=== PATIENT | male | born 1955 | race Caucasian/White ===

== ENCOUNTER 2016-07-12 04:53 | Inpatient (IN) | payer OTHER ==
[2016-07-12 05:49] LABS: FLU INTERNAL QC INTERNAL QC VALID; RAPID FLU A NEGATIVE (NEGATIVE); RAPID FLU B NEGATIVE (NEGATIVE)
[2016-07-12] MEDS ORDERED: ZOSYN 3.375 GM 3.375 GM in SODIUM CHLORIDE 100 ML IV STA (06:08)
[2016-07-12] MEDS ORDERED: SODIUM CHLORIDE 1,000 ML IV STA (06:08)
[2016-07-12] MEDS ORDERED: XOPENEX 1.25 MG NEB STA (06:32)
--- NOTE | 2016-07-12 06:35 | ED.PDOC ---
General Stated Complaint: im coughing and im sob and i have a sore throat Time Seen by Physician: 04:55 Mode of Arrival: Walk-In Information Source: Patient Exam Limitations: No limitations Nursing and Triage Documentation Reviewed and Agree: Yes <XIAO HARTMANN - Last Filed: 07/12/16 06:58> Stated Complaint: 2 days Sore throat, states sputum red colored productive cough , more short of air than normal, fever and chills. Hx pneumonia 6 wks ago. 101.1 79 22 91% 137/74 5/10. oxycontin <YISEL ECHEVARRIA JR - Last Filed: 07/12/16 18:03> ED Provider: Dr. YISEL ECHEVARRIA JR Chief Complaint: Cough Primary Care Provider: MANUELA WATSON Respiratory Complaint Exam - Respiratory Complaint/Exam Onset/Duration: 2 days Symptoms Are: Still present Timing: Intermittent Initial Severity: Mild Current Severity: Moderate Location: Throat, Chest Character: Reports: Productive cough Aggravating: Reports: URI Alleviating: Reports: None Associated Signs and Symptoms: Reports: Dyspnea, Fever, Chills, Hemoptysis, Sore throat. Denies: Rapid breathing, Chest pain, Pleuritic chest pain, Wheezing, Dizziness, Calf pain, Calf swelling, Edema, URI, Nasal congestion, Hoarseness, Sinus discomfort, Vomiting, Weight loss, Decreased oral intake, Increased thirst, Increased appetite, Increased urination Related History: Reports: Similar episode History of Healthcare-Acquired Pneumonia: No Cardiac Risk Factors: Reports: Prior [place], CAD, Hypertension Home Oxygen Use: No Recent Stress Test: No Recent Echo/LV Function: No Current Antibiotic Use: No Current Asthma Medication Use: No Respiratory Distress: None Inadequate Respiratory Effort: No Dysphagia Present: No Stridor Present: No JVD Present: No Accessory Muscle Use: No Retractions: Not Present Diminished Breath Sounds: No Sinus Tenderness: None Grunting Respirations: No Kussmaul Respirations: No Differential Diagnoses: Pneumonia, URI, Other Non-Traumatic Chest Pain Syncope: EKG Performed <XIAO HARTMANN - Last Filed: 07/12/16 06:58> Review of Systems - Review Of Systems Constitutional: Reports: Chills, Fever, Weakness Eyes: Reports: No symptoms Ears, Nose, Mouth, Throat: Reports: Throat pain Respiratory: Reports: Cough Cardiac: Reports: No symptoms GI: Reports: No symptoms : Reports: No symptoms Musculoskeletal: Reports: No symptoms Skin: Reports: No symptoms Neurological: Reports: No symptoms Endocrine: Reports: No symptoms Hematologic/Lymphatic: Reports: No symptoms All Other Systems: Reviewed and Negative <XIAO HARTMANN - Last Filed: 07/12/16 06:58> Past Medical History - Past Medical History Previously Healthy: No Endocrine: Reports: None Cardiovascular: Reports: CHF, Other (enlarged heart) Respiratory: Reports: COPD Hematological: Reports: None Gastrointestinal: Reports: Other Genitourinary: Reports: None 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 ABDOMINAL SURGERY - Surgical History General Surgical History: Reports: Orthopedic ( RIGHT KNEE X3. LEFT SHOULDER X3. ), Other (ESOPHAGUS/STOMACH.) - Family History Family History: Reports: Other (sister of MS at 51 yo) - Social History Smoking Status: Current every day smoker Hx Substance Use: Yes (5 yrs ago - alcohol) Alcohol Screening: None Lives: With family - Immunizations Tetanus Shot up to Date: Yes <XIAO HARTMANN - Last Filed: 07/12/16 06:58> - Past Medical History Endocrine: Reports: Dyslipidemia Cardiovascular: Reports: CAD, [place], Hypertension, Other Neuro/Psych: Reports: CVA, Anxiety, Depression Musculoskeletal: Reports: Back Pain (chronic back pain) Cancer: Reports: Skin (skin cancer), Other (3/4 left kidney removed 05/2016 due to CA-renal cancer) - Surgical History General Surgical History: Reports: Gastric Bypass (rima fundoplication 15 yrs ago) <YISEL ECHEVARRIA JR - Last Filed: 07/12/16 18:03> Physical Exam - Physical Exam Appearance: Ill-appearing Ill-appearing: Mild Eyes: AUREA, EOMI, Conjunctiva clear ENT: Ears normal, Nose normal, Oropharynx normal Neck: Supple Respiratory: Airway patent, Breath sounds clear, Breath sounds equal, Respirations nonlabored Cardiovascular: RRR, Pulses normal, No rub, No murmur GI/: Soft, Nontender, No masses, Bowel sounds normal, No Organomegaly Musculoskeletal: Normal strength, ROM intact, No edema, No calf tenderness Skin: Warm, Dry, Normal color Neurological: Sensation intact, Motor intact, Reflexes intact, Cranial nerves intact, Alert, Oriented Psychiatric: Affect appropriate, Mood appropriate <IVAN-DENNISXIAO - Last Filed: 07/12/16 06:58> - Physical Exam Appearance: Ill-appearing Respiratory: Airway patent, Breath sounds clear Musculoskeletal: No calf tenderness <YISEL ECHEVARRIA - Last Filed: 07/12/16 18:03> Physician Notification - Case Discussed Physician Notified: dr echevarria Time of Notification: 07:00 <MARY KATEXIAO - Last Filed: 07/12/16 06:58> Critical Care Note - Critical Care Note Total Time (mins): 30 <YISEL ECHEVARRIA - Last Filed: 07/12/16 18:03> Course - Course Hematology/Chemistry: 07/12/16 06:45 <MARTADENNISXIAO - Last Filed: 07/12/16 06:58> - Course Hematology/Chemistry: 07/12/16 06:45 07/12/16 06:45 <YISEL ECHEVARRIA - Last Filed: 07/12/16 18:03> - Course Orders, Labs, Meds: Lab Review 07/12/16 07/12/16 07/12/16 05:30 06:06 06:45 WBC 11.34 H RBC 4.86 Hgb 13.9 L Hct 41.4 L MCV 85.2 MCH 28.6 MCHC 33.6 RDW Coeff of Martin 13.9 Plt Count 231 Immature Gran % (Auto) 0.3 Neut % (Auto) 79.5 Lymph % (Auto) 10.2 [place] % (Auto) 7.5 Eos % (Auto) 1.9 Baso % (Auto) 0.6 Immature Gran # (Auto) 0.0 Neut # 9.0 H Lymph # 1.2 [place] # 0.9 Eos # 0.2 Baso # 0.1 D-Dimer (Manual) 1551.30 Puncture Site R radial O2 Saturation 88.0 L ABG pH 7.343 L ABG pCO2 48.3 H ABG pO2 58.0 L* ABG HCO3 26.2 H ABG Total CO2 28 ABG Base Excess 1 Walker Test + FiO2 % 21.0 Sodium 135 L Potassium 4.2 Chloride 99 Carbon Dioxide 28 Anion Gap 12.2 BUN 8 Creatinine 0.89 Estimated GFR (MDRD) 87.00 BUN/Creatinine Ratio 8.98 Glucose 125 H Lactic Acid 8.4 Calcium 9.1 Total Bilirubin 0.59 AST 11 L ALT 7 L Alkaline Phosphatase 69 Total Protein 7.1 Albumin 3.6 Globulin 3.5 Albumin/Globulin Ratio 1.03 Procalcitonin 0.16 Influenza A (Rapid) Negative Influenza B (Rapid) Negative Orders Category Date Time Status ADMIT PATIENT INPATIENT .TO [facility] [place] (MONITORED BED) ADMISSION 07/12/16 08: 05 Active ABG DRAW REQUEST Stat CARDIO 07/12/16 06:06 Completed EKG-(ED ONLY) Stat CARDIO 07/12/16 06:32 Completed EKG-(IP & OP ONLY) DAILY CARDIO 07/13/16 06:00 Ordered EKG-(IP & OP ONLY) DAILY CARDIO 07/14/16 06:00 Ordered EKG-(IP & OP ONLY) DAILY CARDIO 07/15/16 06:00 Ordered NEBULIZER TREATMENT Routine CARDIO 07/12/16 08:19 Active NEBULIZER TREATMENT Stat CARDIO 07/12/16 06:32 Completed OXYGEN Routine CARDIO 07/12/16 08:09 Active ACTIVITY .Early Mobilization for VTE Prevention CARE 07/12/16 08:05 Active INTAKE & OUTPUT Q8HR CARE 07/12/16 08:06 Active NPO REMINDER: IMAGING ONCE CARE 07/12/16 07:33 Completed TELEMETRY MONITORING TELE CARE 07/12/16 08:09 Active VITAL SIGNS Q4HR CARE 07/12/16 08:05 Active REGULAR DIET DIETARY 07/12/16 Breakfast Ordered IV [ED IV/MEDIPORT/POWERPORT] .ONCE EMERGENCY 07/12/16 06:07 Active ABG Stat LAB 07/12/16 06:06 Completed BLOOD CULTURE Stat LAB 07/12/16 06:45 Received CBC W/ AUTO DIFF DAILY@0600 LAB 07/13/16 06:00 Ordered CBC W/ AUTO DIFF DAILY@0600 LAB 07/14/16 06:00 Ordered CBC W/ AUTO DIFF DAILY@0600 LAB 07/15/16 06:00 Ordered CBC W/ AUTO DIFF DAILY@0600 LAB 07/16/16 06:00 Ordered CBC W/ AUTO DIFF DAILY@0600 LAB 07/17/16 06:00 Ordered CBC W/ AUTO DIFF DAILY@0600 LAB 07/18/16 06:00 Ordered CBC W/ AUTO DIFF DAILY@0600 LAB 07/19/16 06:00 Ordered CBC W/ AUTO DIFF DAILY@0600 LAB 07/20/16 06:00 Ordered CBC W/ AUTO DIFF DAILY@0600 LAB 07/21/16 06:00 Ordered CBC W/ AUTO DIFF DAILY@0600 LAB 07/22/16 06:00 Ordered CBC W/ AUTO DIFF DAILY@0600 LAB 07/23/16 06:00 Ordered CBC W/ AUTO DIFF DAILY@0600 LAB 07/24/16 06:00 Ordered CBC W/ AUTO DIFF DAILY@0600 LAB 07/25/16 06:00 Ordered CBC W/ AUTO DIFF DAILY@0600 LAB 07/26/16 06:00 Ordered CBC W/ AUTO DIFF DAILY@0600 LAB 07/27/16 06:00 Ordered CBC W/ AUTO DIFF DAILY@0600 LAB 07/28/16 06:00 Ordered CBC W/ AUTO DIFF DAILY@0600 LAB 07/29/16 06:00 Ordered CBC W/ AUTO DIFF DAILY@0600 LAB 07/30/16 06:00 Ordered CBC W/ AUTO DIFF DAILY@0600 LAB 07/31/16 06:00 Ordered CBC W/ AUTO DIFF DAILY@0600 LAB 08/01/16 06:00 Ordered CBC W/ AUTO DIFF Stat LAB 07/12/16 06:45 Completed COMPREHENSIVE METABOLIC PANEL DAILY@0600 LAB 07/13/16 06:00 Ordered COMPREHENSIVE METABOLIC PANEL DAILY@0600 LAB 07/14/16 06:00 Ordered COMPREHENSIVE METABOLIC PANEL DAILY@0600 LAB 07/15/16 06:00 Ordered COMPREHENSIVE METABOLIC PANEL DAILY@0600 LAB 07/16/16 06:00 Ordered COMPREHENSIVE METABOLIC PANEL DAILY@0600 LAB 07/17/16 06:00 Ordered COMPREHENSIVE METABOLIC PANEL DAILY@0600 LAB 07/18/16 06:00 Ordered COMPREHENSIVE METABOLIC PANEL DAILY@0600 LAB 07/19/16 06:00 Ordered COMPREHENSIVE METABOLIC PANEL DAILY@0600 LAB 07/20/16 06:00 Ordered COMPREHENSIVE METABOLIC PANEL DAILY@0600 LAB 07/21/16 06:00 Ordered COMPREHENSIVE METABOLIC PANEL DAILY@0600 LAB 07/22/16 06:00 Ordered COMPREHENSIVE METABOLIC PANEL DAILY@0600 LAB 07/23/16 06:00 Ordered COMPREHENSIVE METABOLIC PANEL DAILY@0600 LAB 07/24/16 06:00 Ordered COMPREHENSIVE METABOLIC PANEL DAILY@0600 LAB 07/25/16 06:00 Ordered COMPREHENSIVE METABOLIC PANEL DAILY@0600 LAB 07/26/16 06:00 Ordered COMPREHENSIVE METABOLIC PANEL DAILY@0600 LAB 07/27/16 06:00 Ordered COMPREHENSIVE METABOLIC PANEL DAILY@0600 LAB 07/28/16 06:00 Ordered COMPREHENSIVE METABOLIC PANEL DAILY@0600 LAB 07/29/16 06:00 Ordered COMPREHENSIVE METABOLIC PANEL DAILY@0600 LAB 07/30/16 06:00 Ordered COMPREHENSIVE METABOLIC PANEL DAILY@0600 LAB 07/31/16 06:00 Ordered COMPREHENSIVE METABOLIC PANEL DAILY@0600 LAB 08/01/16 06:00 Ordered COMPREHENSIVE METABOLIC PANEL Stat LAB 07/12/16 06:45 Completed CREATINE KINASE Q8H LAB 07/12/16 14:20 Completed CREATINE KINASE Q8H LAB 07/12/16 22:15 Ordered D-DIMER Stat LAB 07/12/16 06:45 Completed LACTIC ACID Stat LAB 07/12/16 06:45 Completed MOLECULAR GROUP A STREP Stat LAB 07/12/16 05:30 Results PROCALCITONIN Stat LAB 07/12/16 06:45 Completed RAPID FLU A/B Stat LAB 07/12/16 05:30 Completed STREP SCREEN Stat LAB 07/12/16 05:30 Results TROPONIN I Q8H LAB 07/12/16 14:20 Completed TROPONIN I Q8H LAB 07/12/16 22:15 Ordered URINALYSIS C & S IF INDICATED Stat LAB 07/12/16 06:06 Uncollected 0.9 % Sodium Chloride [Saline Flush] MEDS 07/12/16 06:07 Active 1 syr IVF PRN PRN Acetaminophen [Tylenol] MEDS 07/12/16 08:05 Active 650 mg PO Q4H PRN Albuterol Sulfate 0.083% Neb [Albuterol 0.083% Neb] MEDS 07/12/16 12:00 Active 1 vial NEB RTQ6H Clopidogrel Bisulfate [Plavix] MEDS 07/12/16 09:00 Active 75 mg PO DAILY Docusate Sodium [Colace] MEDS 07/12/16 21:00 Active 100 mg PO BEDTIME Enoxaparin Sodium [Lovenox] MEDS 07/12/16 08:13 Discontinued 100 mg SUBCUT ONCE STA Enoxaparin Sodium [Lovenox] MEDS 07/12/16 09:00 Active 100 mg SUBCUT Q12HR Enoxaparin Sodium [Lovenox] MEDS 07/12/16 09:00 Discontinued 30 mg SUBCUT DAILY Fluticasone/Salmeterol [Advair Hfa 115-21 Mcg Inhaler] MEDS 07/12/16 09:00 Discontinued 2 inh PO BID Levalbuterol HCl [Xopenex 1.25 mg] MEDS 07/12/16 06:32 Discontinued 1 vial NEB ONCE STA Methylprednisolone Sod Succ/Pf [Solu-Medrol 125 mg] MEDS 07/12/16 08:20 Discontinued 125 mg IVP ONCE STA Methylprednisolone Sod Succ/Pf [Solu-Medrol 125 mg] MEDS 07/12/16 08:22 Discontinued 125 mg IVP ONCE STA Methylprednisolone Sod Succ/Pf [Solu-Medrol 125 mg] MEDS 07/12/16 13:00 Active 80 mg IVP Q8HR Montelukast Sodium [Singulair] MEDS 07/12/16 21:00 Active 10 mg PO BEDTIME Oxycodone HCl [Oxycontin] MEDS 07/12/16 09:00 Active 80 mg PO Q12HR Oxycodone-Acetaminophen 10-325 [Percocet 10-325] MEDS 07/12/16 08:15 Active 1 tab PO Q4H PRN Piperacillin Sodium/Tazobactam [Zosyn 3.375 gm] 3.375 MEDS 07/12/16 06:08 Discontinued gm 0.9 % Sodium Chloride [Sodium Chloride] 100 ml IV ONCE Piperacillin Sodium/Tazobactam [Zosyn 4.5 gm] 4.5 gm MEDS 07/12/16 12:00 Discontinued 0.9 % Sodium Chloride [Sodium Chloride] 100 ml IV Q6HR Sodium Chloride 0.9% [Sodium Chloride] 1,000 ml MEDS 07/12/16 06:08 Discontinued IV 100 mls/hr Sodium Chloride 0.9% [Sodium Chloride] 1,000 ml MEDS 07/12/16 08:30 Active IV 75 mls/hr RESUSCITATION STATUS Routine OTHERS 07/12/16 08:[address] CHEST W/O CONTRAST Stat RADS 07/12/16 06:[address] SOFT TISSUE NECK W/O CONTR Stat RADS 07/12/16 06:08 Completed VQ SCAN [PULMONARY VENT/PERFUSION/ NM] Stat RADS 07/12/16 08:32 Completed Medications Generic Name Dose Route Start Last Admin Trade Name Freq PRN Reason Stop Dose Admin Acetaminophen 650 mg 07/12/16 08:05 Tylenol PO Q4H PRN Mild Pain Albuterol Sulfate 1 vial 07/12/16 12:00 07/12/16 11:21 Albuterol 0.083% Neb NEB 1 vial RTQ6H JESICA Administration Alprazolam 1 mg 07/12/16 09:29 Xanax PO Q6HR PRN Agitation Clopidogrel Bisulfate 75 mg 07/12/16 09:00 07/12/16 12:56 Plavix PO 75 mg DAILY JESICA Administration Docusate Sodium 100 mg 07/12/16 21:00 Colace PO BEDTIME JESICA Enoxaparin Sodium 100 mg 07/12/16 09:00 07/12/16 12:55 Lovenox SUBCUT 100 mg Q12HR JESICA Administration Fluticasone Propionate 1 spray 07/12/16 16:47 Flonase BAILEY BID PRN COLD SYMPTOMS Sodium Chloride 1,000 mls @ 75 mls/hr 07/12/16 08:30 07/12/16 11:30 Sodium Chloride IV 75 mls/hr .[id number] JESICA Administration Piperacillin Sod/Tazobactam 100 mls @ 100 mls/hr 07/12/16 12:00 07/12/16 17: 33 Sod 3.375 gm/ Sodium Chloride IV 100 mls/hr Q6HR JESICA Administration Methylprednisolone Sodium Succinate 80 mg 07/12/16 13:00 07/12/16 12:54 Solu-Medrol 125 Mg IVP 80 mg Q8HR JESICA Administration Montelukast Sodium 10 mg 07/12/16 21:00 Singulair PO BEDTIME JESICA Non-Formulary Medication 2 inh 07/12/16 21:00 Fluticasone/Salmeterol [Advair Hfa 115-21 Mcg Inhaler] PO BID JESICA Oxycodone HCl 80 mg 07/12/16 09:00 07/12/16 12:56 Oxycontin PO 80 mg Q12HR JESICA Administration Oxycodone/Acetaminophen 1 tab 07/12/16 08:15 07/12/16 17:48 Percocet 10-325 PO 1 tab Q4H PRN Administration Severe Pain Simvastatin 80 mg 07/12/16 09:00 07/12/16 12:55 Zocor PO 80 mg DAILY JESICA Administration Sodium Chloride 1 syr 07/12/16 06:07 Saline Flush IVF PRN PRN To flush IV Discontinued Medications Generic Name Dose Route Start Last Admin Trade Name Freq PRN Reason Stop Dose Admin Enoxaparin Sodium 30 mg 07/12/16 09:00 Lovenox SUBCUT DAILY JESICA Enoxaparin Sodium 100 mg 07/12/16 08:13 07/12/16 08:34 Lovenox SUBCUT 07/12/16 08:14 100 mg ONCE STA Administration Piperacillin Sod/Tazobactam 100 mls @ 100 mls/hr 07/12/16 06:08 07/12/16 07: 18 Sod 3.375 gm/ Sodium Chloride IV 07/12/16 07:07 100 mls/hr ONCE STA Administration Sodium Chloride 1,000 mls @ 100 mls/hr 07/12/16 06:08 07/12/16 07:18 Sodium Chloride IV 07/12/16 16:07 100 mls/hr .Q10H STA Administration Piperacillin Sod/Tazobactam 100 mls @ 100 mls/hr 07/12/16 12:00 07/12/16 12: 57 Sod 4.5 gm/ Sodium Chloride IV Not Given Q6HR JESICA Levalbuterol HCl 1 vial 07/12/16 06:32 07/12/16 07:03 Xopenex 1.25 Mg NEB 07/12/16 06:33 1 vial ONCE STA Administration Methylprednisolone Sodium Succinate 125 mg 07/12/16 08:20 07/12/16 08:31 Solu-Medrol 125 Mg IVP 07/12/16 08:21 125 mg ONCE STA Administration Methylprednisolone Sodium Succinate 125 mg 07/12/16 08:22 07/12/16 08:25 Solu-Medrol 125 Mg IVP 07/12/16 08:23 Not Given ONCE STA Non-Formulary Medication 2 inh 07/12/16 09:00 07/12/16 12:56 Fluticasone/Salmeterol [Advair Hfa 115-21 Mcg Inhaler] PO Not Given BID JESICA Vital Signs: Temp Pulse Resp BP Pulse Ox 07/12/16 04:54 101.1 F H 79 22 137/74 91 L Departure <XIAO HARTMANN - Last Filed: 07/12/16 06:58> - Departure Time of Disposition: 08:34 Pt referred to PMD for follow-up: No (hospitalise) <YISEL ECHEVARRIA JR - Last Filed: 07/12/16 18:03> - Departure Disposition: ADMITTED INPATIENT Discharge Problem: Acute tonsillitis Condition: Stable Allergies/Adverse Reactions: Allergies No Known Allergies Allergy (Verified 07/12/16 05:11) Home Medications: Ambulatory Orders Mometasone Furoate [Nasonex] 17 gm NS DIRECTED PRN 10/23/13 Montelukast Sodium [Singulair] 10 mg PO BEDTIME 10/23/13 Oxycodone HCl [Oxycontin] 80 mg PO Q12HR 10/23/13 Oxycodone-Acetaminophen 10-325 [Percocet 10-325] 1 tab PO Q4H PRN 10/23/13 Simvastatin [Zocor] 80 mg PO DAILY 10/23/13 Fluticasone/Salmeterol [Advair Hfa 115-21 Mcg Inhaler] 2 inh PO BID 06/01/14 Alprazolam [Xanax] 1 mg PO Q6H PRN 12/06/15 Docusate Sodium [Dulcolax Stool Softener] 100 mg PO BEDTIME 12/06/15 Clopidogrel Bisulfate [Clopidogrel] 75 mg PO DAILY 01/15/16
--- NOTE | 2016-07-12 06:43 | CT ---
EXAM: CT of the chest without contrast. HISTORY: Cough. Fever. FINDINGS: The heart is within normal limits in size. The thoracic aorta is within normal limits in diameter. The mediastinum is normal in appearance. No infiltrate or consolidation. There are degene rative changes in the spine. There is surgical hardware in the left shoulder. The adrenal glands a nd liver are normal in appearance. There are operative changes in the left kidney. Impression: Negative CT of the chest.
[2016-07-12 06:49] LABS: BASOPHILS # (AUTO) 0.1 K/uL (0-0.2); BASOPHILS % (AUTO) 0.6 % (0.0-3.0); EOSINOPHILS # (AUTO) 0.2 K/ul (0.0-0.7); EOSINOPHILS % (AUTO) 1.9 % (0.0-7.0); HEMATOCRIT 41.4 % (42.0-52.0); HEMOGLOBIN 13.9 g/dl (14.0-18.0); IMMATURE GRANULOCYTE % (AUTO) 0.3 % (0.0-5.0); LYMPHOCYTES # (AUTO) 1.2 K/uL (0.60-3.4); LYMPHOCYTES % (AUTO) 10.2 (10.0-50.0); MEAN CORPUSCULAR HEMOGLOBIN 28.6 pg (27.0-31.0); MEAN CORPUSCULAR HGB CONC 33.6 (31.8-35.4); MEAN CORPUSCULAR VOLUME 85.2 fl (80.0-94.0); MONOCYTES # (AUTO) 0.9 K/uL (0.4-2.0); MONOCYTES % (AUTO) 7.5 (0-10); NEUTROPHILS % (AUTO) 79.5; PLATELET COUNT 231 10^3/uL (140-440); RED BLOOD COUNT 4.86 10^6/ul (4.70-6.10); WHITE BLOOD COUNT 11.34 K/ul (4.2-10.2)
[2016-07-12 06:52] LABS: ABG PCO2 48.3 mmHg (35-45); ABG PH 7.343 (7.35-7.45)
--- NOTE | 2016-07-12 06:52 | CT ---
EXAM: CT of the neck without contrast. HISTORY: Sore throat. Fever. PROCEDURE: Contiguous axial CT images of the neck without contrast with coronal and sagittal reform ats. FINDINGS: The parotid glands, submandibular glands and thyroid gland are normal in appearance. The epiglottis and prevertebral soft tissues are normal in appearance. There is mild enlargement of the left lingual tonsil and moderate enlargement of the right lingual tonsil suspicious for tonsillitis. No discrete fluid collection or evidence of abscess. The airway is maintained. There are enlarged r ight cervical lymph nodes measuring up to 1 cm in short axis. There is minimal mucosal thickening in the paranasal sinuses. The mastoid air cells are well-aerated. There are degenerative changes in th e spine. Impression: Mild enlargement of the left lingual tonsil and moderate enlargement of the right lingua l tonsil suspicious for tonsillitis. Recommend correlation with physical exam. Recommend outpatient follow-up with Otolaryngology to exclude a mass. Cervical lymphadenopathy as described which is probably reactive. Minimal paranasal sinusitis.
[2016-07-12 06:53] LABS: ABG BASE EXCESS 1 (-2.0-2.0); ABG HCO3 26.2 (22.0-26.0); ABG TCO2 28 (22.0-28.0)
[2016-07-12 07:08] LABS: ALBUMIN 3.6 g/dL (3.4-5.0); ALBUMIN/GLOBULIN RATIO 1.03; ANION GAP 12.2; BILIRUBIN,TOTAL 0.59 mg/dL (0.00-1.20); BUN/CREATININE RATIO 8.98; CALCIUM 9.1 mg/dL (8.2-10.2); CREATININE 0.89 mg/dL (0.60-1.10); POTASSIUM 4.2 mmol/L (3.5-5.1); TOTAL PROTEIN 7.1 g/dL (5.8-8.1)
[2016-07-12] MEDS ORDERED: TYLENOL PO PRN (08:05)
[2016-07-12] MEDS ORDERED: LOVENOX SUBCUT STA (08:13)
[2016-07-12] MEDS ORDERED: NON-FORMULARY MEDICATION (Alprazolam [Xanax] 1 MG) PO PRN ×22 (08:15)
[2016-07-12] MEDS ORDERED: NON-FORMULARY MEDICATION (Mometasone Furoate [Nasonex] 17 GM) NS PRN ×22 (08:15)
[2016-07-12] MEDS ORDERED: SOLU-MEDROL 125 MG IVP STA ×2 (08:20→08:22)
[2016-07-12] MEDS ORDERED: LOVENOX SUBCUT SCH (09:00)
[2016-07-12] MEDS ORDERED: SALMETEROL PO SCH (09:00)
[2016-07-12] MEDS ORDERED: FLUTICASONE PO SCH (09:00)
[2016-07-12] MEDS ORDERED: SIMVASTATIN 80 MG PO SCH (09:00)
[2016-07-12] MEDS ORDERED: XANAX PO PRN (09:29)
[2016-07-12] MEDS: ALBUTEROL 0.083% NEB NEB SCH ×3 (11:21→23:12)
[2016-07-12] MEDS: SODIUM CHLORIDE 1,000 ML IV SCH (11:30)
--- NOTE | 2016-07-12 11:30 | NM ---
EXAM: Ventilation perfusion lung scan HISTORY: Shortness of breath, elevated D-dimer COMPARISON: No recent chest x-ray TECHNIQUE: Patient was injected 5.4 mCi of technetium 99m labeled MAA intravenously. Patient was gi amna 32.6 mCi of technetium 99m DTPA aerosol via the nebulizer for ventilation imaging. FINDINGS: Perfusion images show cardiomegaly. No segmental or subsegmental perfusion defect is note d. Ventilation images are unremarkable. IMPRESSION: Cardiomegaly. Otherwise normal VQ scan.
[2016-07-12 11:43] VITALS: BMI 31.1
[2016-07-12] MEDS ORDERED: ZOSYN 4.5 GM 4.5 GM in SODIUM CHLORIDE 100 ML IV SCH (12:00)
[2016-07-12] MEDS: SOLU-MEDROL 125 MG IVP SCH ×2 (12:54→20:55)
[2016-07-12] MEDS: ZOCOR PO SCH (12:55)
[2016-07-12] MEDS: LOVENOX SUBCUT SCH ×2 (12:55→20:53)
[2016-07-12] MEDS: OXYCONTIN PO SCH ×2 (12:56→20:53)
[2016-07-12] MEDS: PLAVIX PO SCH (12:56)
[2016-07-12] MEDS: ZOSYN 3.375 GM 3.375 GM in SODIUM CHLORIDE 100 ML IV SCH ×2 (13:11→17:33)
[2016-07-12 14:46] LABS: CREATINE KINASE 32 U/L
[2016-07-12] MEDS ORDERED: FLONASE NAS PRN (16:47)
[2016-07-12] MEDS: PERCOCET 10-325 PO PRN (17:48)
[2016-07-12] MEDS: SINGULAIR PO SCH (20:52)
[2016-07-12] MEDS: COLACE PO SCH (20:52)
[2016-07-12] MEDS: FLUTICASONE PO SCH (20:56)
[2016-07-12] MEDS: SALMETEROL PO SCH (20:56)
[2016-07-12 22:14] LABS: CREATINE KINASE 34 U/L
[2016-07-13] MEDS: SODIUM CHLORIDE 1,000 ML IV SCH ×2 (00:21→18:22)
[2016-07-13] MEDS: ZOSYN 3.375 GM 3.375 GM in SODIUM CHLORIDE 100 ML IV SCH ×5 (00:21→23:07)
[2016-07-13 02:13] LABS: BILIRUBIN,URINE Negative (NEGATIVE); KETONES,URINE Negative (NEGATIVE); LEUKOCYTE ESTERASE ,URINE Negative (NEGATIVE); NITRITE,URINE Negative (NEGATIVE); PROTEIN,URINE Negative (NEGATIVE); URINE, BLOOD Negative (NEGATIVE)
[2016-07-13 02:16] LABS: ADD URINE MICROSCOPIC NO
[2016-07-13] MEDS: ALBUTEROL 0.083% NEB NEB SCH ×4 (05:14→22:17)
[2016-07-13] MEDS: SOLU-MEDROL 125 MG IVP SCH ×3 (05:24→20:01)
[2016-07-13 06:07] LABS: BASOPHILS % (AUTO) 0.1 % (0.0-3.0); HEMATOCRIT 37.6 % (42.0-52.0); HEMOGLOBIN 12.5 g/dl (14.0-18.0); IMMATURE GRANULOCYTE % (AUTO) 0.7 % (0.0-5.0); LYMPHOCYTES # (AUTO) 0.7 K/uL (0.60-3.4); LYMPHOCYTES % (AUTO) 7.4 (10.0-50.0); MEAN CORPUSCULAR HEMOGLOBIN 28.4 pg (27.0-31.0); MEAN CORPUSCULAR HGB CONC 33.2 (31.8-35.4); MEAN CORPUSCULAR VOLUME 85.5 fl (80.0-94.0); MONOCYTES # (AUTO) 0.4 K/uL (0.4-2.0); MONOCYTES % (AUTO) 3.7 (0-10); NEUTROPHILS # (AUTO) 8.9 K/ul (2.0-6.9); NEUTROPHILS % (AUTO) 88.1; PLATELET COUNT 230 10^3/uL (140-440); WHITE BLOOD COUNT 10.04 K/ul (4.2-10.2)
[2016-07-13 06:25] LABS: ALANINE AMINOTRANSFERASE < 6 U/L (12-78); ALBUMIN 3.1 g/dL (3.4-5.0); ALBUMIN/GLOBULIN RATIO 0.91; ALKALINE PHOSPHATASE 58 U/L (56-119); ANION GAP 12.7; ASPARTATE AMINO TRANSFERASE 5 U/L (15-37); BLOOD UREA NITROGEN 11 mg/dL (7-18); BUN/CREATININE RATIO 11.45; CALCIUM 8.4 mg/dL (8.2-10.2); CARBON DIOXIDE 24 mmol/L (23-31); CHLORIDE 100 mmol/L (98-107); CREATININE 0.96 mg/dL (0.60-1.10); GLUCOSE 256 mg/dL (82-115); POTASSIUM 3.7 mmol/L (3.5-5.1); SODIUM 133 mmol/L (136-145); TOTAL PROTEIN 6.5 g/dL (5.8-8.1)
[2016-07-13 06:31] LABS: BILIRUBIN,TOTAL < 0.10 mg/dL (0.00-1.20)
[2016-07-13] MEDS: PERCOCET 10-325 PO PRN ×3 (06:58→18:19)
[2016-07-13] MEDS: ZOCOR PO SCH (08:51)
[2016-07-13] MEDS: OXYCONTIN PO SCH ×2 (08:52→20:02)
[2016-07-13] MEDS: LOVENOX SUBCUT SCH (08:52)
[2016-07-13] MEDS: PLAVIX PO SCH (08:52)
[2016-07-13] MEDS: SALMETEROL PO SCH (10:39)
[2016-07-13] MEDS: FLUTICASONE PO SCH (10:39)
--- NOTE | 2016-07-13 10:55 | PCM.PROG ---
Attending Provider: ATTENDING PROVIDER: Dr. MYNOR NASH DATE OF SERVICE: 07/13/16 SUBJECTIVE: This 61 year old WHITE/ M was hospitalized 07/12/16. The patient is admitted with pharyngitis, severe hypoxemia, elevated D. dimer, rule out pulmonary embolism. Venous scan is negative for clots. CT of the neck showed enlargement of soft tissue of neck. The patient can swallow better today. He states his throat feels a lot better. REVIEW OF SYSTEMS: CONSTITUTIONAL: No fever, no chills. ENDOCRINE: No weight loss or weight gain. HEENT: Throat is red but is much better. CVS: No angina symptoms. No CHF symptoms. No palpitations. No atypical chest pain for CAD. No shortness of breath. No PND, no orthopnea. RESPIRATORY: No cough, no hemoptysis. GI: No melena. No abdominal pain. No nausea, no vomiting. : No hematuria. No polyuria. SKIN: No rash. No wounds. MUSCULOSKELETAL: No pain. COMPUTER APPLICATIONS ENGINEER: No blackout, no dizziness. No headache. No double vision. PSYCHIATRIC: Not anxious; no depression. No suicidal thoughts. No homicidal thoughts. PHYSICAL EXAMINATION: GENERAL: Lying in bed in no distress. VITAL SIGNS: Temperature 97.7 F, Pulse 80, Respiratory Rate 14, BP 110/48, Pulse Ox 93% HEENT: Normocephalic, atraumatic. Mucosa is dry, pallor positive. Throat - redness. NECK: No JVP, no carotid bruit. No lymphadenopathy. CARDIAC: S1, S2, no S3. No murmur, gallop or regurgitation. LUNGS: Decreased entry. Clear to auscultation. ABDOMEN: Soft, non-tender. Bowel sounds active. No rigidity, guarding or CVA tenderness. EXTREMITIES: No clubbing, cyanosis or edema. NEUROLOGIC: Awake, alert and oriented x3. LYMPHATIC: No palpable lymph nodes SKIN: Not dry. Intact. MUSCULOSKELETAL: No joint swelling. LAB REVIEW: 07/13/16 05:30 07/13/16 05:30 07/13/16 05:30: WBC 10.04, RBC 4.40 L, Hgb 12.5 L, Hct 37.6 L, MCV 85.5, MCH 28.4, MCHC 33.2, RDW Coeff of [place] 13.4, Plt Count 230, Immature Gran % (Auto) 0.7, Neut % (Auto) 88.1, Lymph % (Auto) 7.4 L, Yell % (Auto) 3.7, Eos % (Auto) 0.0, Baso % (Auto) 0.1, Immature Gran # (Auto) 0.1, Neut # 8.9 H, Lymph # 0.7, Yell # 0.4, Eos # 0.0, Baso # 0.0, Sodium 133 L, Potassium 3.7, Chloride 100, Carbon Dioxide 24, Anion Gap 12.7, BUN 11, Creatinine 0.96, Estimated GFR (MDRD ) 80.00, BUN/Creatinine Ratio 11.45, Glucose 256 H D, Calcium 8.4, Total Bilirubin < 0.10, AST 5 L, ALT < 6 L, Alkaline Phosphatase 58, Total Protein 6.5 , Albumin 3.1 L, Globulin 3.4, Albumin/Globulin Ratio 0.91 07/13/16 00:40: Urine Color Yellow, Urine Clarity Clear, Urine pH 6.0, Ur Specific [place] 1.010, Urine Protein Negative, Urine Glucose (UA) 2+, Urine Ketones Negative, Urine Blood Negative, Urine Nitrite Negative, Urine Bilirubin Negative, Urine Urobilinogen 0.2, Ur Leukocyte Esterase Negative 07/12/16 21:49: Total Creatine Kinase 34, Troponin I < 0.0100 07/12/16 14:20: Total Creatine Kinase 32, Troponin I < 0.0100 ASSESSMENT: 1. COPD exacerbation secondary to bronchitis 2. Hypoxemia 3. No pulmonary embolism 4. Pharyngitis with swollen soft tissue of the neck 5. Hypertension 6. Dyslipidemia 7. Hyperglycemia, rule out diabetes mellitus 8. Chronic pain PLAN: 1. Continue Zosyn 2. Continue IV fluids 3. Continue breathing treatments 4. Out of bed to chair 5. HB A1c Plan and coordination of the patient's care discussed in the presence of Mortgage Processing Manager and nurse. CONDITION: Stable SCRIBED BY: KYLAH KIDD Production Stage Manager scribed while in presence of service performed by Dr. MYNOR NASH on 07/13/16 ([id number])
--- NOTE | 2016-07-13 14:18 | HP ---
DATE OF SERVICE: 07/12/16 CHIEF COMPLAINT: Cough and shortness of breath. HISTORY OF PRESENT ILLNESS: This is a 57-year-old male, who came to the emergency room complaining of coughing and congestion productive of yellow-green mucus. He started having shortness of breath and sore throat with fever and chills. He had pneumonia 6 weeks ago, was worried and came to the emergency room and was seen by Dr. Perez in the ER initially. White count 11.34, D. dimer 1551. ABG showed pH 7.34 , pc02 48.3, p02 58. Lactic acid and procalcitonin were negative and influenza negative. Rapid strep was done as the patient's tonsils were swollen; this was negative. CT of the cervical spine which showed tonsillar enlargement. CT chest no acute infiltrate. At that time, the patient is admitted to the hospital for COPD exacerbation, bronchitis, acute tonsillitis and hypoxemia for IV antibiotics and breathing treatment. REVIEW OF SYSTEMS: CONSTITUTIONAL: Fever and chills. Weakness and tiredness. HEENT: Normocephalic, atraumatic. Swallowing difficulty with sore throat. ENDOCRINE: No weight gain; no weight loss. CVS: No chest pain. No PND, no orthopnea. No shortness of breath. No PND, no orthopnea. RESPIRATORY: Cough and congestion. No hemoptysis. GI: No nausea, no vomiting. No abdominal pain. No melena. : No hematuria. No polyuria. MUSCULOSKELETAL: No joint swelling. PSYCHIATRIC: Not anxious. No depression. No suicidal thoughts. No homicidal thoughts. SKIN: Intact, no open lesions. PAST MEDICAL HISTORY: CAD status post stent Hypertension Dyslipidemia History of [place] CHF CVA TIA History of pneumonia GERD Osteoarthritis DJD spine Chronic pain syndrome PAST SURGICAL HISTORY: Recent fundoplication Cholecystectomy Hernia repair Tonsillectomy PERSONAL HISTORY: The patient does smoke one pack per day for 42 years; substance use 5 years ago ; alcohol use. FAMILY HISTORY: Significant for [place] and hypertension. MEDICATIONS: (Home) Zocor Oxycontin Percocet Nasonex Singulair Advair Dulcolax Xanax Plavix ALLERGIES: NKDA PHYSICAL EXAMINATION: V/S: BP 107/62, respiratory rate 20, heart rate 58, temperature 97.6, saturation 94 on 2L. HEENT: Atraumatic, normocephalic. Mucosa dry. NECK: Supple. No JVD, no bruit. No lymphadenopathy. No thyromegaly. HEART: S1, S2 normal. No murmur. No cyanosis or clubbing. No ascites. LUNGS: Decreased with some crackles. ABDOMEN: Soft, nontender. Bowel sounds are active. No CVA tenderness. No rigidity or guarding. EXTREMITIES: No cyanosis, clubbing or pedal edema. MUSCULOSKELETAL: Normal joints, no swelling. NEUROLOGIC: The patient is awake and alert. SKIN: Intact; no open lesions. LYMPHATIC: No lymph nodes palpable. LABS: White count 11.34, hemoglobin 13.9, hematocrit 41.4, platelet count 231. Sodium 135, potassium 4.2, chloride 99, bicarb 28, BUN 8, creatinine 0.89, glucose 125 , AST 11, ALT 7, procalcitonin 0.16. Influenza negative. ABG showed pH 7.343, pc02 48.3, p02 58.0, D.dimer 51.30. ASSESSMENT: 1. COPD EXACERBATION SECONDARY TO BRONCHITIS AND UPPER RESPIRATORY INFECTION 2. HYPOXEMIA RULE OUT PULMONARY EMBOLISM 3. HYPERTENSION 4. DYSLIPIDEMIA 5. CAD STATUS POST STENT 6. HYPERTENSION 7. CHRONIC PAIN SYNDROME PLAN: 1. Admit the patient to the regular floor 2. CBC, CMP today and daily 3. Cardiac enzymes and troponin 4. IV fluids 5. Blood cultures 6. Lovenox 100 mg q.12 7. Solu-Medrol 80 q.8 8. Zosyn q.6hr 9. Duonebs 10. Will follow with the patient in daily rounds TIME SPENT: More than 55 minutes today AYESHA
[2016-07-13] MEDS: SINGULAIR PO SCH (20:02)
[2016-07-13] MEDS: ADVAIR 250-50 DISKUS IH SCH (20:02)
[2016-07-13] MEDS: COLACE PO SCH (20:02)
[2016-07-14] MEDS: PERCOCET 10-325 PO PRN ×2 (00:05→04:40)
[2016-07-14] MEDS: ALBUTEROL 0.083% NEB NEB SCH ×2 (05:07→11:13)
[2016-07-14] MEDS: SOLU-MEDROL 125 MG IVP SCH (05:30)
[2016-07-14] MEDS: ZOSYN 3.375 GM 3.375 GM in SODIUM CHLORIDE 100 ML IV SCH (05:30)
[2016-07-14 06:11] LABS: BASOPHILS % (AUTO) 0.1 % (0.0-3.0); HEMATOCRIT 36.1 % (42.0-52.0); HEMOGLOBIN 12.1 g/dl (14.0-18.0); IMMATURE GRANULOCYTE % (AUTO) 0.8 % (0.0-5.0); LYMPHOCYTES # (AUTO) 0.9 K/uL (0.60-3.4); LYMPHOCYTES % (AUTO) 7.3 (10.0-50.0); MEAN CORPUSCULAR HEMOGLOBIN 28.5 pg (27.0-31.0); MEAN CORPUSCULAR HGB CONC 33.5 (31.8-35.4); MEAN CORPUSCULAR VOLUME 85.1 fl (80.0-94.0); MONOCYTES # (AUTO) 0.5 K/uL (0.4-2.0); MONOCYTES % (AUTO) 3.8 (0-10); NEUTROPHILS # (AUTO) 10.5 K/ul (2.0-6.9); PLATELET COUNT 242 10^3/uL (140-440); RED BLOOD COUNT 4.24 10^6/ul (4.70-6.10); WHITE BLOOD COUNT 11.96 K/ul (4.2-10.2)
[2016-07-14 06:28] LABS: ANION GAP 12.1; BLOOD UREA NITROGEN 8 mg/dL (7-18); BUN/CREATININE RATIO 10.38; CARBON DIOXIDE 25 mmol/L (23-31); CHLORIDE 105 mmol/L (98-107); CREATININE 0.77 mg/dL (0.60-1.10); POTASSIUM 4.1 mmol/L (3.5-5.1); SODIUM 138 mmol/L (136-145)
[2016-07-14 06:29] LABS: ALANINE AMINOTRANSFERASE < 6 U/L (12-78); ALBUMIN/GLOBULIN RATIO 0.79; ALKALINE PHOSPHATASE 49 U/L (56-119); ASPARTATE AMINO TRANSFERASE 7 U/L (15-37); CALCIUM 8.3 mg/dL (8.2-10.2); GLUCOSE 194 mg/dL (82-115); TOTAL PROTEIN 6.8 g/dL (5.8-8.1)
[2016-07-14] MEDS: ADVAIR 250-50 DISKUS IH SCH (08:35)
[2016-07-14] MEDS: PLAVIX PO SCH (08:35)
[2016-07-14] MEDS: OXYCONTIN PO SCH (08:35)
[2016-07-14] MEDS: ZOCOR PO SCH (08:35)
[2016-07-14] MEDS ORDERED: LOVENOX SUBCUT SCH (09:00)
--- NOTE | 2016-07-14 09:54 | PCM.PROG ---
Attending Provider: ATTENDING PROVIDER: Dr. MYNOR NASH DATE OF SERVICE: 07/14/16 SUBJECTIVE: This 61 year old WHITE/ M was hospitalized 07/12/16. The patient states he feels better, throat is better. He doesn't have any problem swallowing. Blood sugar is elevated most likely from steroids, awaiting A1C results. REVIEW OF SYSTEMS: CONSTITUTIONAL: No fever, no chills. ENDOCRINE: No weight loss or weight gain. HEENT: No sinus drainage, no sore throat. CVS: No angina symptoms. No CHF symptoms. No palpitations. No atypical chest pain for CAD. No shortness of breath. RESPIRATORY: No cough, no hemoptysis. GI: No melena. No abdominal pain. No nausea, no vomiting. : No hematuria. No polyuria. SKIN: No rash. No wounds. MUSCULOSKELETAL: No pain. FOOD AND BEVERAGE ASSISTANT: No blackout, no dizziness. No headache. No double vision. PSYCHIATRIC: Not anxious; no depression. No suicidal thoughts. No homicidal thoughts. PHYSICAL EXAMINATION: GENERAL: Lying in bed in no distress. VITAL SIGNS: Temperature 96.6 F, Pulse 62, Respiratory Rate 18, BP 113/56, Pulse Ox 95% HEENT: Normocephalic, atraumatic. Mucosa is dry, pallor positive. NECK: No JVP, no carotid bruit. No lymphadenopathy. CARDIAC: S1, S2, no S3. No murmur, gallop or regurgitation. LUNGS: Clear to auscultation. ABDOMEN: Soft, non-tender. Bowel sounds active. No rigidity, guarding or CVA tenderness. EXTREMITIES: No clubbing, cyanosis or edema. NEUROLOGIC: Awake, alert and oriented x3. LYMPHATIC: No palpable lymph nodes SKIN: Not dry. Intact. MUSCULOSKELETAL: No joint swelling. LAB REVIEW: 07/14/16 05:20 07/14/16 05:20 07/14/16 05:20: WBC 11.96 H, RBC 4.24 L, Hgb 12.1 L, Hct 36.1 L, MCV 85.1, MCH 28.5, MCHC 33.5, RDW Coeff of Martin 13.9, Plt Count 242, Immature Gran % (Auto) 0.8, Neut % (Auto) 88.0, Lymph % (Auto) 7.3 L, [place] % (Auto) 3.8, Eos % (Auto) 0.0, Baso % (Auto) 0.1, Immature Gran # (Auto) 0.1, Neut # 10.5 H, Lymph # 0.9, [place] # 0.5, Eos # 0.0, Baso # 0.0, Sodium 138, Potassium 4.1, Chloride 105, Carbon Dioxide 25, Anion Gap 12.1, BUN 8, Creatinine 0.77, Estimated GFR (MDRD) 103.00, BUN/Creatinine Ratio 10.38, Glucose 194 H D, Calcium 8.3, Total Bilirubin 0.10, AST 7 L, ALT < 6 L, Alkaline Phosphatase 49 L, Total Protein 6.8 , Albumin 3.0 L, Globulin 3.8, Albumin/Globulin Ratio 0.79 ASSESSMENT: 1. COPD exacerbation secondary to bronchitis 2. Hypoxemia 3. No pulmonary embolism 4. Pharyngitis with swollen soft tissue of the neck 5. Hypertension 6. Dyslipidemia 7. Hyperglycemia, rule out diabetes mellitus 8. Chronic pain PLAN: 1. Awaiting A1C results. 2. Keflex 500 mg b.i.d. for five more days. 3. Discharge home later today. 4. Lifestyle modifications discussed to include weight loss, diet, and exercise. Plan and coordination of the patient's care discussed in the presence of Ultrasound Technol and nurse. CONDITION: Stable SCRIBED BY: KYLAH KIDD Water Purifier Operator scribed while in presence of service performed by Dr. MYNOR NASH on 07/14/16 ([id number])
[2016-07-14 10:59] VITALS: BP 113/62; TEMP 97.9
--- NOTE | 2016-08-10 15:49 | DS ---
DATE OF SERVICE: 07/14/16 FINAL DIAGNOSIS: 1. COPD exacerbation secondary to the bronchitis 2. Hypoxemia which is better 3. Elevated D-dimer negative for pulmonary embolism 4. Pharyngitis with swollen soft tissue of the neck which is resolved 5. Hypertension 6. Dyslipidemia 7. Chronic pain syndrome 8. Elevated sugars mostly from the steroids A1c is 6.0. 9. History of coronary artery disease, 3-4 years ago 10.History of CVA x3, no residual weakness. 11. Cholecystectomy 12. Appendectomy 13. Will Fundoplication 14. Three knee surgeries 15. Left shoulder surgery 16. New onset of diabetes DISCHARGE INSTRUCTIONS: Discharge the patient home. Return to the primary care provider Elvi Murphy as soon as possible. Continue the rest of the home medications. MEDICATIONS AT DISCHARGE: Oxycodone Xanax Plavix Dulcolax Advair Nasonex Singulair Zocor NEW PRESCRIPTIONS: Keflex 500mg take twice a day for five days Metformin 500mg PO daily with breakfast. DIET INSTRUCTIONS: Low Carb diet. High protein diet. ACTIVITY: Get plenty of rest at home. Gradually increase activity level. Monitor the blood glucose levels daily. SMOKING: Current smoker DISEASE SPECIFIC EDUCATION: Dehydration Bronchitis Elevated sugars and diabetes been discussed and use of Metformin. Risks of kidney injury been discussed. HOSPITAL COURSE: Zurdo Ramirez who is a 61 year old male with multiple medical problems came to the emergency room with difficulty swallowing, coughing, congestion, shortness of breath. ABG were done in the emergency room showed a pH 7.43, pCO2 48.3, pO2 58 , D-Dimer was elevated 1551, WBC 11,000. CT of the chest with IV contrast was done which was negative. CT of the chest was done which was negative without contrast. Soft tissue of the neck CT done; left lingual tonsil and moderate enlargement of the right lingual tonsil suspicious for tonsillitis. Lung scan was done for the elevated D-Dimer which showed the Cardiomegaly otherwise normal VQ scan. His sugars were elevated 125, 256, 194 and A1c was done which was 6.0 but his risk of diabetes is high so the patient was started on the Metformin. Explained about the prediabetes and the use of Metformin. Keep checking the Accu-checks. Weight loss been suggested. Gradually with the given antibiotics the patient was feeling better was swallowing the food without any problems. No choking episode. As patient was feeling better and his condition was improved was being discharged from the hospital. TIME SPENT: More than 60 minutes today. AYESHA
== END 2016-07-14 12:50 | disposition home or self-care (01) | DRG 202 ==
LOC: ED 04:53 → MEDSURG B 08:58
PROVIDERS: ADMIT Emergency Medicine; ATTEND Emergency Medicine
DX: J20.9 Acute bronchitis, unspecified (principal); J44.0 Chronic obstructive pulmonary disease with (acute) lower respiratory infection; J44.1 Chronic obstructive pulmonary disease with (acute) exacerbation; R79.1 Abnormal coagulation profile; J03.90 Acute tonsillitis, unspecified; R05 Cough; R06.02 Shortness of breath; R50.9 Fever, unspecified; R09.02 Hypoxemia; I51.7 Cardiomegaly; R73.9 Hyperglycemia, unspecified; I10 Essential (primary) hypertension; E78.5 Hyperlipidemia, unspecified; G89.4 Chronic pain syndrome; F17.200 Nicotine dependence, unspecified, uncomplicated; Z79.02 Long term (current) use of antithrombotics/antiplatelets; Z79.899 Other long term (current) drug therapy; Z86.73 Personal history of transient ischemic attack (TIA), and cerebral infarction without residual deficits
CPT/HCPCS: 36415; 80053; 81001; 82550; 82803; 83036; 83605; 84145; 84484; 85025; 85379; 87040; 87651; 87804; 87880; 93005; 93010; 94640; 96365; 96375; 99223; 99233; 99239; 99284

== ENCOUNTER 2016-08-09 08:39 | Outpatient (CLI) ==
--- NOTE | 2016-08-09 10:25 | CT ---
Exam: CT exam of the chest without intravenous contrast followed by CT exam of the chest with intra venous contrast. Comparison: 07/12/2016. Reason for exam: Malignant neoplasm of kidney. FINDINGS: No pneumothorax, pleural effusion, or focal consolidation. There is mild basilar atelect asis. The heart is not enlarged. The thyroid gland is unremarkable. The aorta is normal in its course and caliber. Atherosclerotic d isease is seen within the aorta and distal arterial vasculature including the coronary vessels. There is an incidental note of bilateral pulmonary embolus involving the left distal main, basilar, and proximal ascending pulmonary artery as well as the right medial basilar, lateral, and superior s egmental arteries. No osteoblastic or osteolytic lesions. The right clavicle is not fully evaluated. There are operati ve changes in the left shoulder. Impression: 1. No evidence of metastatic disease within the chest. 2. Critical result/finding: Incidental note of a moderately sized bilateral pulmonary emboli as de scribed. 3. No pneumothorax, pleural effusion, or focal consolidation. 4. Please see CT examination of the abdomen pelvis performed on the same day for evaluation of the abdomen pelvis. Imaging findings were discussed directly with the ordering provider Elvi Murphy at 1018 hours on 12/2016. Report faxed at the same time.
== END 2016-08-09 08:40 | disposition home or self-care (01) ==
LOC: RAD 08:39
PROVIDERS: ATTEND Nurse Practitioner Family
DX: Z85.528 Personal history of other malignant neoplasm of kidney (principal)

== ENCOUNTER 2016-11-16 05:52 | Emergency (ER) ==
[2016-11-16 06:12] VITALS: BP 141/66; TEMP 98.8; BMI 32.5
--- NOTE | 2016-11-16 06:12 | ED.PDOC ---
General Stated Complaint: patient states he started having chest pain yesterday afternoon while at rest. Describes it as sharp pain 7/10 that gets sharp at times. State it has gotten worse. with radiation to the back and right jaw. States he has a prior history of PE. Also felt nausead prior to arrival. Time Seen by Physician: 06:00 Exam Limitations: No limitations Nursing and Triage Documentation Reviewed and Agree: Yes <SEAN ZELAYA Last Filed: 11/16/16 07:09> Information Source: Patient Referred to ED by: Other (jake harvey at 7am examined pt and discussed a CTA WITH GARCIA CTA ORDERED ) <PARAMJIT WELSH Last Filed: 11/16/16 07:57> ED Provider: Dr. PARAMJIT WELSH Chief Complaint: Chest Pain Primary Care Provider: MANUELA WATSON Cardiovascular Complaint Exam - Chest Pain Complaint/Exam Onset: Gradual Duration: 1 day Symptoms Are: Still present Timing: Intermittent (waxing and waning ) Initial Severity: Severe Current Severity: Moderate Location: Reports: Right anterior Pain Radiates: Reports: Back, Jaw Character: Reports: Sharp Aggravating: Reports: None Associated Signs and Symptoms: Reports: Nausea, Back pain. Denies: Diaphoresis , Vomiting, Cough, Abdominal pain, Dizziness, Short of air, Calf pain, Calf swelling Related History: Reports: Similar episode Related Surgical History: Reports: PTCA/Stent AMI/ACS Risk Factors: Reports: Myocardial Infarction, Diabetes, Hypertension, Smoking, Dyslipidemia TAD Risk Factors: Reports: Hypertension, Smoking Pulmonary Embolism Risk Factors: Reports: Previous PE Prior Care for this Complaint: No Recent Stress Test: No Recent Echo/LV Function: No JVD Present: No Subcutaneous Emphysema Present: No Diminshed Breath Sounds: No Reproducible Chest Wall Pain: No Bilateral Pulses Present: No Unequal Pulses Noted: No If Risk Factors for AMI/ACS Consider: EKG, Cardiac Enzymes, Oxygen, Aspirin Differential Diagnoses: Acute [place] Quality Indicators For Acute [place] or Cardiac Chest Pain: EKG in 10min. Quality Indicator For Non-Traumatic Chest Pain/Syncope: EKG Performed Patient Advised to Stop Smoking: Yes <SEAN ZELAYA Filed: 11/16/16 07:09> Review of Systems - Review Of Systems Constitutional: Reports: No symptoms Respiratory: Reports: Short of air Cardiac: Reports: Chest pain Neurological: Reports: Anxiety All Other Systems: Reviewed and Negative <SEAN ZELAYA Last Filed: 11/16/16 07:09> Past Medical History - Past Medical History Previously Healthy: No Endocrine: Reports: Dyslipidemia Cardiovascular: Reports: CAD, [place], Hypertension, Other Respiratory: Reports: COPD, PE Hematological: Reports: None Gastrointestinal: Reports: Other Genitourinary: Reports: None Neuro/Psych: Reports: CVA, Anxiety, Depression Musculoskeletal: Reports: Back Pain (chronic back pain) Cancer: Reports: Skin (skin cancer), Other (06/03 left kidney removed 05/2016 due to CA-renal cancer) Other Pertinent Past Medical History: CARDIAC STENTS. ABDOMINAL SURGERY - Surgical History General Surgical History: Reports: Gastric Bypass (rima fundoplication 15 yrs ago) - Family History Family History: Reports: Other (sister of MS at 51 yo) - Social History Smoking Status: Current every day smoker Hx Substance Use: Yes (5 yrs ago - alcohol) Alcohol Screening: None <SEAN ZELAYA Filed: 11/16/16 07:09> Physical Exam - Physical Exam Appearance: Ill-appearing, Obese Ill-appearing: Moderate Pain Distress: Severe Eyes: AUREA, EOMI, Conjunctiva clear Neck: Supple Respiratory: Airway patent, Breath sounds clear, Breath sounds equal, Respirations nonlabored Cardiovascular: RRR, Pulses normal, No rub, No murmur GI/: Soft Musculoskeletal: Normal strength, ROM intact, No edema, No calf tenderness Skin: Warm Neurological: Sensation intact, Motor intact, Alert, Oriented Psychiatric: Anxious <SEAN ZELAYA Filed: 11/16/16 07:09> Interpretation - Radiology Interpretation Radiology Interpretation By: ED Physician Radiology Results: Negative Exam Interpreted: Portable CXR - Beauty Therapist Rate: Normal Rhythm: Sinus Ectopy: PVCs - EKG Interpretation Time of EKG #1: 05:53 Rate: Normal Rhythm: Sinus Ectopy: PVCs Interpretation: sinus Rhythm with occ PVC, old septal infact. <SEAN ZELAYA Last Filed: 11/16/16 07:09> Physician Notification - Case Discussed Endorsed To/Discussed With: Laura Time of Discussion: 07:09 <SEAN ZELAYA Last Filed: 11/16/16 07:09> Critical Care Note - Critical Care Note Total Time (mins): 45 <ESAN ZELAYA Filed: 11/16/16 07:09> Course - Course Hematology/Chemistry: 11/16/16 06:15 11/16/16 06:15 <CORUTNEYSEAN HANNAH - Last Filed: 11/16/16 07:09> - Course Hematology/Chemistry: 11/16/16 06:15 11/16/16 06:15 <PARAMJIT WELSH - Last Filed: 11/16/16 07:57> - Course Orders, Labs, Meds: Lab Review 11/16/16 06:15 WBC 8.23 RBC 5.32 Hgb 15.4 Hct 44.1 MCV 82.9 MCH 28.9 MCHC 34.9 RDW Coeff of Martin 13.7 Plt Count 236 Immature Gran % (Auto) 0.4 Neut % (Auto) 58.1 Lymph % (Auto) 29.9 [place] % (Auto) 9.0 Eos % (Auto) 1.9 Baso % (Auto) 0.7 Immature Gran # (Auto) 0.0 Neut # 4.8 Lymph # 2.5 [place] # 0.7 Eos # 0.2 Baso # 0.1 PT 11.2 H INR 1.10 Sodium 138 Potassium 4.4 Chloride 101 Carbon Dioxide 25 Anion Gap 16.4 BUN 20 H Creatinine 1.05 Estimated GFR (MDRD) 72.00 BUN/Creatinine Ratio 19.04 Glucose 141 H Calcium 9.2 Total Bilirubin 0.28 AST 19 ALT 14 Alkaline Phosphatase 75 Troponin I 0.0280 Total Protein 7.7 Albumin 3.7 Globulin 4.0 Albumin/Globulin Ratio 0.93 Orders Category Date Time Status EKG-(ED ONLY) Stat CARDIO 11/16/16 06:03 Completed NPO REMINDER: IMAGING ONCE CARE 11/16/16 07:06 Active NPO REMINDER: IMAGING ONCE CARE 11/16/16 07:20 Active ED IV/MEDIPORT/POWERPORT .ONCE EMERGENCY 11/16/16 06:03 Active OXYGEN [ED APPLY O2] .ONCE EMERGENCY 11/16/16 06:27 Active CBC W/ AUTO DIFF Stat LAB 11/16/16 06:15 Completed COMPREHENSIVE METABOLIC PANEL Stat LAB 11/16/16 06:15 Completed PT WITH INR Stat LAB 11/16/16 06:15 Completed TROPONIN I Stat LAB 11/16/16 06:15 Completed 0.9 % Sodium Chloride [Saline Flush] MEDS 11/16/16 06:03 Active 1 syr IVF PRN PRN Aspirin [Aspirin Chewable] MEDS 11/16/16 06:13 Discontinued 324 mg PO ONCE STA Nitroglycerin [Nitrostat] MEDS 11/16/16 06:40 Discontinued 0.4 mg SL ONCE STA Sodium Chloride 0.9% [Sodium Chloride] 1,000 ml MEDS 11/16/16 06:40 Active IV 100 mls/hr CHEST, 1V AP ONLY Stat RADS 11/16/16 06:[address] CHEST PE PROTOCOL Stat RADS 11/16/16 07:19 Ordered Medications Generic Name Dose Route Start Last Admin Trade Name Freq PRN Reason Stop Dose Admin Sodium Chloride 1,000 mls @ 100 mls/hr 11/16/16 06:40 11/16/16 06:50 Sodium Chloride IV 11/16/16 16:39 100 mls/hr .Q10H STA Administration Sodium Chloride 1 syr 11/16/16 06:03 Saline Flush IVF PRN PRN To flush IV Discontinued Medications Generic Name Dose Route Start Last Admin Trade Name Freq PRN Reason Stop Dose Admin Aspirin 324 mg 11/16/16 06:13 11/16/16 06:18 Aspirin Chewable PO 11/16/16 06:14 324 mg ONCE STA Administration Nitroglycerin 0.4 mg 11/16/16 06:40 11/16/16 06:50 Nitrostat SL 11/16/16 06:41 0.4 mg ONCE STA Administration Vital Signs: Temp Pulse Resp BP Pulse Ox 11/16/16 05:59 98.8 F 76 20 141/66 H 91 L AMI Core - Clinical Trial Participant Clinical Trial Participant: No - Palliative Care Palliative Care: none - EKG Initial Interpretation EKG Initial Interpretation Date: 11/16/16 <SEAN ZELAYA - Last Filed: 11/16/16 07:09> ZOHRA Risk Score Age >/= 65: Yes >/= 3 CAD Risk Factors: Yes Known CAD (Stenosis >/= 50%): No ASA Use in Past 7 Days: Yes Severe Angina (>/= 2 episodes in 24 hours): Yes EKG ST Changes >/= 0.5mm: No Postive Cardiac Marker: No ZOHRA Total Score: 4 <SEAN ZELAYA - Last Filed: 11/16/16 07:09> Departure <SEAN ZELAYA - Last Filed: 08/17/17 07:09> - Departure Time of Disposition: 07:54 (at 7:50 am i was told the pt would like that to have some valium becuase he is anxious sitting in the room , i told him he will receive samll amount valium pt upset over the amount of valium 1 mg iv push he decided to leave againts medial advise . risks disussed with makeda and kianna present pt still refused to stay . ) Pt referred to PMD for follow-up: Yes <PARAMJIT WELSH - Last Filed: 11/16/16 07:57> - Departure Disposition: AMA Discharge Problem: Chest pain Instructions: Chest Pain (ED) Condition: Good Allergies/Adverse Reactions: Allergies No Known Allergies Allergy (Verified 11/16/16 06:12) Home Medications: Ambulatory Orders Mometasone Furoate [Nasonex] 17 gm NS DIRECTED PRN 10/23/13 Montelukast Sodium [Singulair] 10 mg PO BEDTIME 10/23/13 Oxycodone HCl [Oxycontin] 80 mg PO Q12HR 10/23/13 Oxycodone-Acetaminophen 10-325 [Percocet 10-325] 1 tab PO Q4H PRN 10/23/13 Simvastatin [Zocor] 80 mg PO DAILY 10/23/13 Fluticasone/Salmeterol [Advair Hfa 115-21 Mcg Inhaler] 2 inh PO BID 06/01/14 Alprazolam [Xanax] 1 mg PO Q6H PRN 12/06/15 Docusate Sodium [Dulcolax Stool Softener] 100 mg PO BEDTIME 12/06/15 Clopidogrel Bisulfate [Clopidogrel] 75 mg PO DAILY 01/15/16 Metformin HCl [Fortamet] 500 mg PO DAILYWM #30 tab.er.24 07/14/16 Aspirin [Aspirin EC] 81 mg PO DAILYWM 11/16/16 Warfarin Sodium [Coumadin] 4 mg PO DAILY 11/16/16 Warfarin Sodium [Coumadin] 5 mg PO DAILY 11/16/16
[2016-11-16] MEDS ORDERED: ASPIRIN CHEWABLE PO STA (06:13)
[2016-11-16 06:19] LABS: BASOPHILS # (AUTO) 0.1 K/uL (0-0.2); BASOPHILS % (AUTO) 0.7 % (0.0-3.0); EOSINOPHILS # (AUTO) 0.2 K/ul (0.0-0.7); EOSINOPHILS % (AUTO) 1.9 % (0.0-7.0); HEMATOCRIT 44.1 % (42.0-52.0); HEMOGLOBIN 15.4 g/dl (14.0-18.0); IMMATURE GRANULOCYTE % (AUTO) 0.4 % (0.0-5.0); LYMPHOCYTES # (AUTO) 2.5 K/uL (0.60-3.4); LYMPHOCYTES % (AUTO) 29.9 (10.0-50.0); MEAN CORPUSCULAR HEMOGLOBIN 28.9 pg (27.0-31.0); MEAN CORPUSCULAR HGB CONC 34.9 (31.8-35.4); MEAN CORPUSCULAR VOLUME 82.9 fl (80.0-94.0); MONOCYTES # (AUTO) 0.7 K/uL (0.4-2.0); NEUTROPHILS # (AUTO) 4.8 K/ul (2.0-6.9); NEUTROPHILS % (AUTO) 58.1; PLATELET COUNT 236 10^3/uL (140-440); RED BLOOD COUNT 5.32 10^6/ul (4.70-6.10); WHITE BLOOD COUNT 8.23 K/ul (4.2-10.2)
[2016-11-16 06:31] LABS: PROTHROMBIN TIME 11.2 SEC (9.3-11.0)
[2016-11-16] MEDS ORDERED: SODIUM CHLORIDE 1,000 ML IV STA (06:40)
[2016-11-16] MEDS ORDERED: NITROSTAT SL STA (06:40)
[2016-11-16 06:44] LABS: ALBUMIN 3.7 g/dL (3.4-5.0); ALBUMIN/GLOBULIN RATIO 0.93; ANION GAP 16.4; BILIRUBIN,TOTAL 0.28 mg/dL (0.00-1.20); BUN/CREATININE RATIO 19.04; CALCIUM 9.2 mg/dL (8.2-10.2); CREATININE 1.05 mg/dL (0.60-1.10); POTASSIUM 4.4 mmol/L (3.5-5.1); TOTAL PROTEIN 7.7 g/dL (5.8-8.1); TROPONIN I 0.028 ng/ml (0.0000-0.4000)
--- NOTE | 2016-11-16 07:34 | DI ---
EXAM: Single frontal view of the chest HISTORY: Chest pain. COMPARISON: Chest x-ray 01/18/[address] chest 08/09/2016 FINDINGS: Cardiomediastinal silhouette is unchanged. There is no pneumothorax or pleural effusion. There is no consolidation, nodule or mass. The osseous structures are unremarkable. IMPRESSION: Cardiomediastinal silhouette is enlarged and unchanged suggestive of mild cardiomegaly. No acute consolidation.
== END 2016-11-16 07:55 | disposition left against medical advice (07) ==
LOC: ED 05:52
DX: R07.9 Chest pain, unspecified (principal); R11.0 Nausea; I25.2 Old myocardial infarction; E11.9 Type 2 diabetes mellitus without complications; I10 Essential (primary) hypertension; E78.5 Hyperlipidemia, unspecified; R06.02 Shortness of breath; I25.10 Atherosclerotic heart disease of native coronary artery without angina pectoris; F17.210 Nicotine dependence, cigarettes, uncomplicated; J44.9 Chronic obstructive pulmonary disease, unspecified; Z95.5 Presence of coronary angioplasty implant and graft; Z86.711 Personal history of pulmonary embolism; Z86.73 Personal history of transient ischemic attack (TIA), and cerebral infarction without residual deficits; Z85.828 Personal history of other malignant neoplasm of skin; Z85.528 Personal history of other malignant neoplasm of kidney; Z98.84 Bariatric surgery status
CPT/HCPCS: 36415; 80053; 84484; 85025; 85610; 93005; 93010; 96360; 99284

== ENCOUNTER 2016-12-01 08:02 | Outpatient (CLI) ==
--- NOTE | 2016-12-01 09:35 | CT ---
EXAM: CT Chest with and without contrast. HISTORY: Kidney cancer. COMPARISON: 08/09/2016. TECHNIQUE: Multiple axial images of the chest were obtained prior to and following intravenous admi nistration of 75 mL of Omnipaque 350, low osmolar. Images were reformatted in the sagittal and rodger nal planes. FINDINGS: Nonenlarged mediastinal and hilar lymph nodes are present. Heart size is normal. There is no pericardial effusion. Atherosclerotic calcifications are present. No suspicious nodule, consolidation, pleural effusion or pneumothorax identified. Pulmonary arterial filling defects have resolved. Old right posterior fourth rib fracture and old left 11th rib fracture noted. Post-treatment change s seen in the left kidney. No acute abnormality identified in the upper abdomen. IMPRESSION: No evidence for metastatic disease in the chest.
== END 2016-12-01 08:03 | disposition home or self-care (01) ==
LOC: RAD 08:02
PROVIDERS: ATTEND Nurse Practitioner Family
DX: Z85.528 Personal history of other malignant neoplasm of kidney (principal)
CPT/HCPCS: 36415

== ENCOUNTER 2017-06-12 08:00 | Outpatient (CLI) ==
--- NOTE | 2017-06-12 09:56 | CT ---
EXAM: CT Chest with and without contrast. HISTORY: Pneumonia follow-up. Left kidney cancer. COMPARISON: 12/01/2016. TECHNIQUE: Multiple axial images of the chest were obtained prior to and following intravenous admin istration of 75 mL of Omnipaque 350, low osmolar. Images were reformatted in the sagittal and pinto l planes. FINDINGS: Heart size is at the upper limits of normal. Atherosclerotic calcifications present. The re is no pericardial effusion. No lymphadenopathy identified. Emphysematous changes are present bilaterally. No consolidation, suspicious nodule, pleural effusion or pneumothorax identified. Limited images of the upper abdomen demonstrate post-treatment changes on the left kidney. Postsurgi leandro changes of the gastroesophageal junction noted. There has been previous left shoulder surgery. There are old bilateral rib fractures. No osteolytic or osteoblastic lesion identified. IMPRESSION: No acute abnormality of the chest. No evidence for metastatic disease.
== END 2017-06-12 08:01 | disposition home or self-care (01) ==
LOC: RAD 08:00
PROVIDERS: ATTEND Nurse Practitioner Family
DX: Z85.528 Personal history of other malignant neoplasm of kidney (principal)
CPT/HCPCS: 36415; 82565

== ENCOUNTER 2017-09-19 10:52 | Outpatient (CLI) | payer OTHER | END 2017-09-19 10:53 | disposition home or self-care (01) | LOC: RAD 10:52 | PROVIDERS: ATTEND Nurse Practitioner Family | DX: N63.12 Unspecified lump in the right breast, upper inner quadrant (principal) ==

== ENCOUNTER 2023-07-08 15:05 | Observation (INO) ==
--- NOTE | 2023-07-08 15:31 | ED.PDOC ---
General ED Provider: Dr. PARAMJIT VINCENT MD Chief Complaint: Dizziness Stated Complaint: Patient with a history of atrial fibrillation, COPD, hypertension, coronary disease, two-vessel bypass May 2022, presently anticoagulated with Eliquis 5 mg twice daily, patient complains acute onset of dizziness over the past 45 minutes states the room appears to be spinning has associated persistent nausea denies headache, blurry vision, dyspnea, chest pain, diaphoresis, and palpitations. Patient does complain of occasional cough associated with dyspnea and has a history of congestive heart failure patient also complains of having a history of acute renal failure after his bypass surgery 1 year ago. Patient also has a pacemaker defibrillator insertion. Time Seen by Provider: 07/08/23 15:20 Mode of Arrival: Walk-In Information Source: Patient Exam Limitations: Clinical condition Primary Care Provider: MANUELA WATSON Nursing and Triage Documentation Reviewed and Agree: Yes What is Opioid Naive?: *Opioid Naive implies the patient is not already taking opioids or not chronically receiving opioids on a daily basis. *PRN dosing is not "usually" associated with tolerance. *Patients are at higher risk of over-sedation and aspiration. What is Opioid Tolerant?: *Opioid Tolerance implies less than the expected response to an opioid. *Acquired tolerance is defined by the patient taking 60mg of oral morphine daily (or equianalgesic dose of another opioid) for 1 week or more. *Often associated with chronic pain. *May take more than usual dose to achieve desired pain control. Review of Systems Review Of Systems Constitutional: Reports Weakness Eyes: Reports No symptoms Ears, Nose, Mouth, Throat: Reports No symptoms Respiratory: Reports No symptoms Cardiac: Reports No symptoms GI: Reports Nausea : Reports No symptoms Musculoskeletal: Reports No symptoms Skin: Reports No symptoms Neurological: Reports Other ( dizziness) Endocrine: Reports No symptoms Hematologic/Lymphatic: Reports No symptoms All Other Systems: Reviewed and Negative [facility] Medical History COPD exacerbation J44.1 - CHRONIC OBSTRUCTIVE PULMONARY DISEASE W (ACUTE) EXACERBATION (ICD- 10) Social History Smoking and tobacco status: Current every day smoker History of recent travel: No Physical Exam Physical Exam Appearance: Reports Ill-appearing Ill-appearing: Mild Pain Distress: None Eyes: Reports AUREA, EOMI and Conjunctiva clear ENT: Reports Ears normal, Nose normal and Oropharynx normal Neck: Supple Respiratory: Reports Airway patent, Breath sounds clear and Breath sounds equal Cardiovascular: Reports RRR, Pulses normal, No rub and No murmur GI/: Reports Soft, Nontender, No masses, Bowel sounds normal and No Organomegaly Musculoskeletal: Reports Normal strength, ROM intact, No edema and No calf tenderness Skin: Reports Warm, Dry and Normal color Neurological: Reports Sensation intact, Motor intact, Reflexes intact, Cranial nerves intact, Alert and Oriented (Oriented x 3) Psychiatric: Reports Affect appropriate and Mood appropriate Physician Notification Case Discussed Physician Notified: Discussed with hospitalist Donna Pickard Time of Notification: 17:05 Comments: Discussed all laboratory data including CBC, CMP, troponin is comfortable chest x-ray with recommendations for observation Critical Care Note Critical Care Note Total Critical Care Time (mins): 20 Course Course 07/08/23 15:52 07/08/23 15:52 Orders, Labs, Meds: Lab Review 07/08/23 07/08/23 07/08/23 15:52 16:32 16:40 WBC 6.05 RBC 4.97 Hgb 14.8 Hct 45.9 MCV 92.4 MCH 29.8 MCHC 32.2 RDW Coeff of Martin 12.9 Plt Count 248 Immature Gran % (Auto) 0.3 Neut % (Auto) 50.8 Lymph % (Auto) 36.4 [place] % (Auto) 8.3 Eos % (Auto) 3.0 Baso % (Auto) 1.2 Neut # (Auto) 3.1 Lymph # (Auto) 2.2 [place] # (Auto) 0.5 Eos # (Auto) 0.2 Baso # (Auto) 0.1 Immature Gran # (Auto) 0.0 PT 11.0 INR 1.06 Puncture Site Rbrach Base Excess 11.5 H O2 Saturation 90.1 L ABG pH 7.43 ABG pCO2 54.0 H ABG pO2 57.0 L* ABG HCO3 35.8 H ABG Total CO2 37.5 H Hemoglobin 0.5 Oxyhemoglobin 88.5 L Carboxyhemoglobin 2.5 H Total Hemoglobin 15.5 FiO2 % 21.0 Sodium 136.0 Potassium 3.40 L Chloride 97.0 L Carbon Dioxide 30.1 H Anion Gap 12.30 BUN 15.8 Creatinine 1.38 H Estimated GFR (MDRD) 51.00 BUN/Creatinine Ratio 11.44 Glucose 110.2 H Calcium 9.07 Magnesium 1.88 Total Bilirubin 0.69 AST 28.4 ALT 16.7 Alkaline Phosphatase 63.5 Troponin I 0.018 NT-Pro-B Natriuret Pep 3170 H Total Protein 7.36 Albumin 4.06 Globulin 3.30 Albumin/Globulin Ratio 1.23 Urine Color Yellow Urine Clarity Clear Urine pH 7.0 Ur Specific [place] 1.015 Urine Protein Negative Urine Glucose (UA) 2+ H Urine Ketones Negative Urine Blood Negative Urine Nitrite Negative Urine Bilirubin Negative Urine Urobilinogen 0.2 Ur Leukocyte Esterase Negative Influ A Molecular Assay Influ B Molecular Assay RSV Antigen SARS CoV-2 RNA Rapid LISSY 07/08/23 16:41 WBC RBC Hgb Hct MCV MCH MCHC RDW Coeff of Martin Plt Count Immature Gran % (Auto) Neut % (Auto) Lymph % (Auto) [place] % (Auto) Eos % (Auto) Baso % (Auto) Neut # (Auto) Lymph # (Auto) [place] # (Auto) Eos # (Auto) Baso # (Auto) Immature Gran # (Auto) PT INR Puncture Site Base Excess O2 Saturation ABG pH ABG pCO2 ABG pO2 ABG HCO3 ABG Total CO2 Hemoglobin Oxyhemoglobin Carboxyhemoglobin Total Hemoglobin FiO2 % Sodium Potassium Chloride Carbon Dioxide Anion Gap BUN Creatinine Estimated GFR (MDRD) BUN/Creatinine Ratio Glucose Calcium Magnesium Total Bilirubin AST ALT Alkaline Phosphatase Troponin I NT-Pro-B Natriuret Pep Total Protein Albumin Globulin Albumin/Globulin Ratio Urine Color Urine Clarity Urine pH Ur Specific [place] Urine Protein Urine Glucose (UA) Urine Ketones Urine Blood Urine Nitrite Urine Bilirubin Urine Urobilinogen Ur Leukocyte Esterase Influ A Molecular Assay Negative by naat Influ B Molecular Assay Negative by naat RSV Antigen Negative by naat SARS CoV-2 RNA Rapid LISSY Negative Orders Category Date Time Status ABG DRAW REQUEST Stat CARDIO 07/08/23 16:18 Completed EKG-(ED ONLY) Stat CARDIO 07/08/23 15:31 Completed NEBULIZER TREATMENT Stat CARDIO 07/08/23 16:29 Completed IP: INSERT SALINE LOCK ONCE CARE 07/08/23 15:31 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] .ONCE EMERGENCY 07/08/23 15:31 Active OXYGEN [ED APPLY O2] .ONCE EMERGENCY 07/08/23 16:59 Active Orthostatic [ED ORTHOSTATIC VITAL SIGNS] .ONCE EMERGENCY 07/08/23 15:34 Active ABG COOX Stat LAB 07/08/23 16:32 Completed CBC W/ AUTO DIFF Stat LAB 07/08/23 15:52 Completed CMP [COMPREHENSIVE METABOLIC PANEL] Stat LAB 07/08/23 15:52 Completed COVID [SARS COV-2 RNA RAPID LISSY] Stat LAB 07/08/23 16:41 Completed DRUG SCREEN (RAPID FOR ED) [DRUG SCREEN, URINE, RAPID] LAB 07/08/23 16:40 Received Stat FLU A & B MOLECULAR [FLU A/B MOLECULAR] Stat LAB 07/08/23 16:41 Completed MAGNESIUM Stat LAB 07/08/23 15:52 Completed PROBNP ED [NT-PROBNP(ED)] Stat LAB 07/08/23 15:52 Completed PT WITH INR Stat LAB 07/08/23 15:52 Completed RSV Stat LAB 07/08/23 16:41 Completed TROPONIN I Stat LAB 07/08/23 15:52 Completed URINALYSIS C & S IF INDICATED Stat LAB 07/08/23 16:40 Completed Furosemide [Lasix] Meds 07/08/23 16:26 Discontinued 40 mg IVP ONCE STA Ipratropium/Albuterol Neb [Duoneb] Meds 07/08/23 16:28 Discontinued 3 ml NEB ONCE STA Ondansetron HCl/Pf [Zofran 4 mg/2 ml] Meds 07/08/23 15:32 Discontinued 4 mg IVP ONCE STA Sodium Chloride 0.9% [Sodium Chloride] 500 ml Meds 07/08/23 15:32 Active IV 30 mls/hr CHEST, 1V AP ONLY Stat RADS 07/08/23 15:[address] HEAD W/O CONTRAST Stat RADS 07/08/23 15:31 Completed Medications Generic Name Dose Route Start Last Admin Trade Name Freq PRN Reason Stop Dose Admin Sodium Chloride 500 mls @ 30 mls/hr 07/08/23 15:32 07/08/23 15:41 Sodium Chloride IV 07/09/23 08:11 30 mls/hr .[id number] ONE Administration Discontinued Medications Generic Name Dose Route Start Last Admin Trade Name Freq PRN Reason Stop Dose Admin Albuterol/Ipratropium 3 ml 07/08/23 16:28 07/08/23 16:53 Ipratropium/Albuterol Vial.Neb NEB 07/08/23 16:29 3 ml ONCE STA Administration Furosemide 40 mg 07/08/23 16:26 07/08/23 16:30 Furosemide Inj 40 Mg/4 Ml Vial IVP 07/08/23 16:27 40 mg ONCE STA Administration Ondansetron HCl 4 mg 07/08/23 15:32 07/08/23 15:40 Ondansetron Hcl/Pf 4 Mg/2 Ml Sdv IVP 07/08/23 15:33 4 mg ONCE STA Administration Vital Signs: Temp Pulse Resp BP Pulse Ox 07/08/23 16:01 94 132/84 07/08/23 16:01 88 140/80 07/08/23 15:08 98 F 76 18 141/78 H 95 Physician Progress Note: Patient with a history of hypertension, COPD, coronary artery disease, previous bypass surgery, pacer defibrillator insertion, presently on Eliquis 5 mg twice daily patient complains of acute onset of dizziness over the past 45 minutes which has been persistent and associated with nausea. Patient denies dyspnea, diaphoresis, palpitations, headache, chest pain, abdominal pain, vomiting and diarrhea. Patient also denies fever or urinary symptoms. Denies recurrent dizziness associated with motion of his head and standing. Portable chest x-ray interpretation per radiology shows no acute cardiopulmonary process. There is cardiomegaly with a left AICD The head CT scan without intravenous contrast obtained from radiology shows no acute intracranial malady there is no fracture there is no infarct, hemorrhage, mass effect midline shift. EKG interpretation normal twelve-lead consistent with bradycardia rate of 60 of atrial paced rhythm with prolonged AV conduction left bundle branch block. All laboratory data normal limits with exception of the BNP of 3170, previous BNP on date 06/16/2023 -3870, 04/03/[id number] Pulse oximetry varies from 70 to 94% on room air, patient ministered Lasix 40 mg IV, followed by DuoNeb aerosol treatment. Differential diagnosis: 1) acute dyspnea 2) acute exacerbation COPD Discussed with hospitalist Donna Pickard [id number] for observation [] Discharge Plan Discharge Patient Disposition: PLACED OBSERVATION Discharge Problem: Acute dyspnea, Acute exacerbation of chronic obstructive pulmonary disease Prescriptions: No Action alprazolam [Xanax] 1 MG tablet 0.5 mg PO BID PRN (Reason: Panic attacks) Hold Instructions: new medication Rx Instructions: take 1 to 2 tabs bid prn Entresto 24-26 mg tablet 1 tab PO BID metoprolol succinate 100 mg tablet extended release 24 hr 100 mg PO DAILY atorvastatin 20 mg tablet 20 mg PO QPM polyethylene glycol 3350 [Gavilax] 17 gram/dose powder 8.5 g PO DAILY PRN (Reason: constipation) Rx Instructions: mix in water melatonin 5 mg capsule 5 - 10 mg PO BEDTIME PRN (Reason: sleep) guaifenesin [Mucinex] 600 mg tablet extended release 12hr 600 mg PO BID PRN (Reason: congestion) albuterol sulfate 2.5 mg /3 mL (0.083 %) Solution For Nebulization 2.5 mg inhalation PRN PRN (Reason: Shortness Of Breath) albuterol sulfate 90 mcg/actuation Hfa Aerosol Inhaler 2 puff INHALATION Q6HR PRN (Reason: Wheezing) apixaban 5 mg Tablet 5 mg PO BID spironolactone 25 mg Tablet 12.5 mg PO DAILY levothyroxine 50 mcg tablet 75 mcg PO DAILY pantoprazole 40 mg Tablet,Delayed Release (Dr/Ec) 40 mg PO DAILY nitroglycerin [Nitrostat] 0.4 mg Tablet, Sublingual 0.4 mg sublingual PRN PRN (Reason: Chest Pain) mirtazapine 15 mg tablet 30 mg PO BEDTIME budesonide-formoterol 160-4.5 mcg/actuation Hfa Aerosol Inhaler 2 puff INHALATION BID Entresto 49-51 mg Tablet 1 tab PO BID Linzess 145 mcg capsule 145 mcg PO DAILY docusate sodium [Colace] 100 mg capsule 200 mg PO TID gabapentin 300 mg capsule 300 mg PO BEDTIME ferrous sulfate [Feosol] 325 mg (65 mg iron) tablet 325 mg PO BID clopidogrel [Plavix] 75 mg tablet 75 mg PO DAILY bumetanide 2 mg tablet 2 mg PO DAILY amiodarone 100 mg tablet 100 mg PO Q8H oxycodone 20 mg tablet 20 mg PO QID Did you 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
[2023-07-08] MEDS: ZOFRAN 4 MG/2 ML IVP STA (15:40)
[2023-07-08] MEDS: SODIUM CHLORIDE 500 ML IV ONE (15:41)
[2023-07-08 15:56] LABS: BASOPHILS # (AUTO) 0.1 K/uL (0-0.2); BASOPHILS % (AUTO) 1.2 % (0.0-3.0); EOSINOPHILS # (AUTO) 0.2 K/ul (0.0-0.7); HEMATOCRIT 45.9 % (42.0-52.0); HEMOGLOBIN 14.8 g/dl (14.0-18.0); IMMATURE GRANULOCYTE % (AUTO) 0.3 % (0.0-5.0); LYMPHOCYTES # (AUTO) 2.2 K/uL (0.60-3.4); LYMPHOCYTES % (AUTO) 36.4 (10.0-50.0); MEAN CORPUSCULAR HEMOGLOBIN 29.8 pg (27.0-31.0); MEAN CORPUSCULAR HGB CONC 32.2 (31.8-35.4); MEAN CORPUSCULAR VOLUME 92.4 fl (80.0-94.0); MONOCYTES # (AUTO) 0.5 K/uL (0.4-2.0); MONOCYTES % (AUTO) 8.3 (0-10); NEUTROPHILS # (AUTO) 3.1 K/ul (2.0-6.9); NEUTROPHILS % (AUTO) 50.8 % (42.2-75.2); PLATELET COUNT 248 10^3/uL (140-440); RDW COEFFICIENT OF VARIATION 12.9 % (11.6-14.8); RED BLOOD COUNT 4.97 10^6/ul (4.70-6.10); WHITE BLOOD COUNT 6.05 K/ul (4.2-10.2)
--- NOTE | 2023-07-08 16:02 | CT ---
EXAM: CT HEAD WITHOUT CONTRAST HISTORY: Marked vertigo COMPARISON: CT head 12/25/2022 TECHNIQUE: Serial axial images of the brain were obtained from the skull base to the vertex without IV contrast. FINDINGS: The ventricles, cisterns and sulci are stable. The lam-white matter junction is maintain ed. There is scattered low attenuation in the periventricular white matter.No midline shift or mass is identified. There is no abnormal intra or extra-axial fluid collection. The paranasal sinuses an d mastoid air cells are clear. The osseous calvarium is intact. IMPRESSION: 1. No acute intracranial abnormality or hemorrhage. 2. Mild scattered microangiopathy. If further evaluation is clinically indicated, MRI may be obtained. All CT scans are performed using dose optimization techniques as appropriate to the performed exam an d include at least one of the following: Automated exposure control, adjustment of the mA and/or kV according t o size, and the use of iterative reconstruction technique.
[2023-07-08 16:10] LABS: ALANINE AMINOTRANSFERASE 16.7 U/L (0-50); ALBUMIN 4.06 g/dL (3.5-5.0); ALKALINE PHOSPHATASE 63.5 U/L (56-119); ASPARTATE AMINO TRANSFERASE 28.4 U/L (17-59); BILIRUBIN,TOTAL 0.69 mg/dL (0.2-1.3); BLOOD UREA NITROGEN 15.8 mg/dL (9-20); CALCIUM 9.07 mg/dL (8.4-10.2); CARBON DIOXIDE 30.1 mmol/L (22-30.0); CREATININE 1.38 mg/dL (0.60-1.10); GLUCOSE 110.2 mg/dL (74-106); MAGNESIUM 1.88 mg/dL (1.6-2.3); POTASSIUM 3.4 mmol/L (3.5-5.1); TOTAL PROTEIN 7.36 g/dL (6.3-8.2)
--- NOTE | 2023-07-08 16:12 | DI ---
EXAM: CHEST RADIOGRAPH TECHNIQUE: Single frontal chest radiograph. HISTORY: Shortness of breath. COMPARISON: 06/16/2023 FINDINGS: The lungs are clear. Cardiomegaly. Left-sided AICD. Previous ORIF of left posterior rib. IMPRESSION: 1. No acute disease.
[2023-07-08 16:22] LABS: TROPONIN I 0.018 ng/ml (0.0000-0.120)
[2023-07-08] MEDS: LASIX IVP STA (16:30)
[2023-07-08] MEDS: DUONEB NEB STA (16:53)
[2023-07-08 16:55] LABS: ABG O2 HGB 88.5 % (95-100); ABG PH 7.43 (7.35-7.45); BEecf 11.5 (-2.0-3.0); COHb 2.5 (0.5-1.5); HCO3 35.8 (21-28); MetHb 0.5 (0-1.5); TCO2 37.5 (19-24); sO2 90.1 % (94-98); tHb 15.5 g/dl (11.7-17.4)
[2023-07-08 16:57] LABS: BILIRUBIN,URINE Negative (NEGATIVE); CLARITY,URINE Clear (CLEAR); COLOR,URINE Yellow (YELLOW); GLUCOSE, URINE (UA) 2+ (NEGATIVE); KETONES,URINE Negative (NEGATIVE); LEUKOCYTE ESTERASE ,URINE Negative (NEGATIVE); NITRITE,URINE Negative (NEGATIVE); PROTEIN,URINE Negative (NEGATIVE); URINE, BLOOD Negative (NEGATIVE); UROBILINOGEN,URINE 0.2 (0.2)
[2023-07-08 17:03] LABS: MOLECULAR FLU A NEGATIVE BY NAAT (NEGATIVE); MOLECULAR FLU B NEGATIVE BY NAAT (NEGATIVE); RSV MOLECULAR NEGATIVE BY NAAT (NEGATIVE); SARS COV-2 RNA RAPID NAAT NEGATIVE (NEGATIVE)
[2023-07-08 17:33] LABS: AMPHETAMINE SCREEN,URINE NEGATIVE (NEGATIVE); BARBITURATE SCREEN,URINE NEGATIVE (NEGATIVE); BENZODIAZEPINES SCREEN,URINE POSITIVE (NEGATIVE); CANNABINOID SCREEN,URINE NEGATIVE (NEGATIVE); COCAIN SCREEN,URINE NEGATIVE (NEGATIVE); METHADONE URINE SCREEN NEGATIVE (NEGATIVE); METHAMPHETAMINES SCREEN,URINE NEGATIVE (NEGATIVE); OPIATE SCREEN,URINE NEGATIVE (NEGATIVE); OXYCODONE URINE SCREEN POSITIVE (NEGATIVE); PHENCYCLIDINE SCREEN,URINE NEGATIVE (NEGATIVE); TRICYCLIC ANTIDEPRESSANTS URIN NEGATIVE (NEGATIVE)
[2023-07-08 18:15] VITALS: BMI 31.0
[2023-07-08] MEDS ORDERED: DUONEB NEB PRN (18:39)
[2023-07-08] MEDS ORDERED: BUMEX PO SCH (19:00)
[2023-07-08] MEDS: SOLU-MEDROL 40 MG IVP SCH (19:38)
[2023-07-08] MEDS: DOXY-100 100 MG in SODIUM CHLORIDE 100ML 100 ML IV SCH (20:19)
[2023-07-08] MEDS: SYMBICORT 160-4.5 MCG INHALER IH SCH (20:20)
[2023-07-08] MEDS: CORDARONE PO SCH (20:20)
[2023-07-08] MEDS: ELIQUIS PO SCH (20:20)
[2023-07-08] MEDS: XANAX PO PRN (20:34)
[2023-07-08] MEDS: OXYCODONE PO PRN (20:34)
[2023-07-08] MEDS: ANTIVERT PO PRN (23:27)
[2023-07-09] MEDS: SPIRIVA IH SCH (08:24)
[2023-07-09] MEDS: MICRO-K CAP PO SCH (08:27)
[2023-07-09] MEDS: ALDACTONE PO SCH (08:28)
[2023-07-09] MEDS: REMERON PO SCH (08:29)
[2023-07-09] MEDS: SYNTHROID PO SCH (08:29)
[2023-07-09] MEDS: PLAVIX PO SCH (08:30)
[2023-07-09] MEDS: PROTONIX PO SCH (08:30)
[2023-07-09] MEDS: JARDIANCE PO SCH (08:30)
[2023-07-09] MEDS: BUMEX PO SCH (08:30)
[2023-07-09] MEDS: PROZAC PO SCH (08:31)
[2023-07-09] MEDS: COZAAR PO SCH (08:31)
[2023-07-09] MEDS: TOPROL XL PO SCH (08:31)
[2023-07-09] MEDS ORDERED: NON-FORMULARY MEDICATION (Dapagliflozin Propanediol [Farxiga] 10 mg tablet) PO SCH (09:00)
[2023-07-09] MEDS: ROCEPHIN 1 GM/50 ML D5W 1 GM/50 ML BAG IV SCH (11:53)
--- NOTE | 2023-07-09 13:28 | PCM ---
Date of Service Date Seen by Provider: 07/09/23 Time Seen by Provider: 08:45 Admit Day/Time Admission Date: 07/08/23 Reason for Admission Chief Complaint: ACUTE DYSPNEA; COPD EXACERBATION Hospital Provider Hospital Provider: MARIAMA EDGAR, [facility] [place] Physician Primary Care Physician: MANUELA WATSON History of Present Illness History of Present Illness: 68 yo male presented to the ER with complaints of shortness of breath and dizziness. Has pmh of COPD with prn oxygen requirement, CAD, and CHF. Had recently been admitted to [facility] [place] with CHF exacerbation and was d/c on 06/20. States he had not been feeling well for the last 2 weeks. Saw his PCP and was prescribed 2 Z-packs with a steroid and did not have any improvement. Patient reports home inhaler and nebulizer use. Has not been wearing his oxygen much. No acute findings in ER other than O2 sat dropping into the 80s when on RA. Patient denies any fever, recent weight gain or edema, chest pain, or other symptoms. 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 Oxygen company reported patient is supposed to wear 2L of oxygen at all times and has a portable tank that he is supposed to be using. BP has been consistently soft since admission. Does not appear to be fluid overloaded at this time. Case Discussed With Case Discussed With: Patient's case was discussed with the ER Physicians, Dr. Ortega. [facility] Medical History Anxiety F41.9 - Anxiety disorder, unspecified (ICD-10) Hypertension I10 - Essential (primary) hypertension (ICD-10) Constipation K59.00 - Constipation, unspecified (ICD-10) Insomnia G47.00 - Insomnia, unspecified (ICD-10) COPD exacerbation J44.1 - CHRONIC OBSTRUCTIVE PULMONARY DISEASE W (ACUTE) EXACERBATION (ICD- 10) Family History Other Hypertension Multiple sclerosis Myocardial infarct Social History Smoking and tobacco status: Current every day smoker Tobacco type: cigarettes Tobacco: How many years used: 50 Passive smoking exposure: Yes Quit status: considering quitting Second hand smoke exposure: Yes Alcohol intake: former Counseling given: No History of recent travel: No Allergies Allergies Allergy/AdvReac Type Severity Reaction Status Date / Time No Known Allergies Allergy Verified 06/16/23 00:49 Current Medications Home Medications alprazolam 1 mg tablet (Xanax) 1 mg PO TID PRN Panic attacks 12/06/15 [History Confirmed 07/08/23 Last Taken 03/20/16] albuterol sulfate 90 mcg/actuation aerosol inhaler 2 puff inhalation Q6HR PRN Wheezing 01/27/22 [History Confirmed 07/08/23 Last Taken Unknown] apixaban 5 mg tablet 5 mg PO BID 01/27/22 [History Confirmed 07/08/23 Last Taken Unknown] budesonide-formoterol HFA 160 mcg-4.5 mcg/actuation aerosol inhaler 2 puff inhalation BID 01/27/22 [History Confirmed 07/08/23 Last Taken Unknown] levothyroxine 50 mcg tablet 50 mcg PO DAILY 01/27/22 [History Confirmed 07/08/23 Last Taken Unknown] nitroglycerin 0.4 mg sublingual tablet (Nitrostat) 0.4 mg sublingual PRN PRN Chest Pain 01/27/22 [History Confirmed 07/08/23 Last Taken 12/25/22] pantoprazole 40 mg tablet,delayed release 40 mg PO DAILY 01/27/22 [History Confirmed 07/08/23 Last Taken Unknown] spironolactone 25 mg tablet 12.5 mg PO DAILY 01/27/22 [History Confirmed 07/08/23 Last Taken Unknown] clopidogrel 75 mg tablet (Plavix) 75 mg PO DAILY 10/27/22 [History Confirmed 07/08/23 Last Taken Unknown] bumetanide 2 mg tablet 2 mg PO DAILY 12/25/22 [History Confirmed 07/08/23 Last Taken Unknown] amiodarone 200 mg tablet 200 mg PO BID 07/08/23 [History Confirmed 07/08/23 Last Taken Unknown] bumetanide 1 mg tablet 1 mg PO .COMPLEX 07/08/23 [History Confirmed 07/08/23 Last Taken Unknown] dapagliflozin propanediol 10 mg tablet (Farxiga) 10 mg PO QAM 07/08/23 [History Confirmed 07/08/23 Last Taken Unknown] fluoxetine 20 mg capsule 20 mg PO QAM 07/08/23 [History Confirmed 07/08/23 Last Taken Unknown] losartan 25 mg tablet 25 mg PO DAILY 07/08/23 [History Confirmed 07/08/23 Last Taken Unknown] melatonin 3 mg capsule 6 mg PO BEDTIME 07/08/23 [History Confirmed 07/08/23 Last Taken Unknown] metoprolol succinate 25 mg tablet,extended release 24 hr 12.5 mg PO DAILY 07/08/23 [History Confirmed 07/08/23 Last Taken Unknown] mirtazapine 30 mg tablet 30 mg PO DAILY 07/08/23 [History Confirmed 07/08/23 Last Taken Unknown] oxycodone 30 mg tablet 30 mg PO Q6H PRN pain 07/08/23 [History Confirmed 07/08/23 Last Taken Unknown] polyethylene glycol 3350 17 gram/dose oral powder (Miralax) 17 g PO DAILY 07/08/23 [History Confirmed 07/08/23 Last Taken Unknown] potassium chloride 10 mEq tablet,extended release (Klor-Con) 10 meq PO .COMPLEX 07/08/23 [History Confirmed 07/08/23 Last Taken Unknown] potassium chloride 10 mEq tablet,extended release (Klor-Con) 10 meq PO DAILY 07/08/23 [History Confirmed 07/08/23 Last Taken Unknown] promethazine 25 mg tablet 25 mg PO DAILY PRN nausea and vomiting 07/08/23 [History Confirmed 07/08/23 Last Taken Unknown] sennosides 8.6 mg-docusate sodium 50 mg tablet (Docuzen) 2 tab-cap PO BID PRN constipation 07/08/23 [History Confirmed 07/08/23 Last Taken Unknown] tiotropium bromide 18 mcg capsule with inhalation device (Spiriva with HandiHaler) 1 cap inhalation DAILY 07/08/23 [History Confirmed 07/08/23 Last Taken Unknown] trazodone 50 mg tablet 25 mg PO BEDTIME PRN insomnia 07/08/23 [History Confirmed 07/08/23 Last Taken Unknown] Home Albuterol/Ipratropium (Ipratropium/Albuterol Vial.Neb) 3 ml NEB RTQ6H PRN PRN Reason: Wheezing Alprazolam (Alprazolam 0.5 Mg Tablet) 1 mg PO TID PRN PRN Reason: Anxiety Last Admin: 07/08/23 20:34 Dose: 1 mg Amiodarone HCl (Amiodarone Hcl 200 Mg Tablet) 200 mg PO BID [facility] Last Admin: 07/09/23 08:30 Dose: 200 mg Apixaban (Apixaban 5 Mg Tab) 5 mg PO BID [facility] Last Admin: 07/09/23 08:31 Dose: 5 mg Budesonide/Formoterol Fumarate (Budesonide/Formoterol Fumarate 160/4.5 Mcg Inhaler) 2 puff IH BID [facility] Last Admin: 07/09/23 08:24 Dose: 2 puff Bumetanide (Bumetanide 1 Mg Tablet) 1 mg PO .COMPLEX [facility] Bumetanide (Bumetanide 1 Mg Tablet) 2 mg PO DAILY [facility] Last Admin: 07/09/23 08:30 Dose: 2 mg Clopidogrel Bisulfate (Clopidogrel Bisulfate 75 Mg Tablet) 75 mg PO DAILY [facility] Last Admin: 07/09/23 08:30 Dose: 75 mg Empagliflozin (Empagliflozin 10 Mg Tablet) 25 mg PO DAILY [facility] Last Admin: 07/09/23 08:30 Dose: 25 mg Fluoxetine HCl (Fluoxetine Hcl 20 Mg Capsule) 20 mg PO QAM [facility] Last Admin: 07/09/23 08:31 Dose: 20 mg CEFTRIAXONE/D5W 1 GM PREMIX (Rocephin 1 Gm/50 Ml D5w) 1 gm in 50 mls @ 100 mls /hr IV DAILY [facility] Stop: 07/12/23 10:59 Last Admin: 07/09/23 11:53 Dose: 100 mls/hr Sodium Chloride (Sodium Chloride) 1,000 mls @ 75 mls/hr IV .[id number] [facility] Levothyroxine Sodium (Levothyroxine Sodium 50 Mcg Tablet) 50 mcg PO DAILY [facility] Last Admin: 07/09/23 08:29 Dose: 50 mcg Losartan Potassium (Losartan Potassium 25 Mg Tablet) 25 mg PO DAILY [facility] Last Admin: 07/09/23 08:31 Dose: 25 mg Meclizine HCl (Meclizine Hcl 25 Mg Tablet) 25 mg PO Q6H PRN PRN Reason: Vertigo Last Admin: 07/09/23 09:29 Dose: 25 mg Meclizine HCl (Meclizine Hcl 25 Mg Tablet) 25 mg PO TID PRN PRN Reason: Vertigo Methylprednisolone Sodium Succinate (Methylprednisolone Sod Succ/Pf 40 Mg/Ml Vial) 40 mg IVP Q8HR [facility] Last Admin: 07/09/23 13:17 Dose: 40 mg Metoprolol Succinate (Metoprolol Succinate 25 Mg Tab.Er.24h) 12.5 mg PO DAILY [facility] Last Admin: 07/09/23 08:31 Dose: 12.5 mg Mirtazapine (Mirtazapine 15 Mg Tablet) 30 mg PO DAILY [facility] Last Admin: 07/09/23 08:29 Dose: 30 mg Oxycodone HCl (Oxycodone Hcl 5 Mg Tablet) 30 mg PO Q6H PRN PRN Reason: MODERATE PAIN Last Admin: 07/09/23 05:11 Dose: 30 mg Pantoprazole Sodium (Pantoprazole Sodium 40 Mg Tablet.Dr) 40 mg PO DAILY [facility] Last Admin: 07/09/23 08:30 Dose: 40 mg Potassium Chloride (Potassium Chloride 10 Meq Capsule.Er) 10 meq PO DAILY [facility] Last Admin: 07/09/23 08:27 Dose: 10 meq Sodium Chloride (0.9% Sodium Chloride 10 Ml Disp.Syrin) 1 syr IVF Q8HR [facility] Last Admin: 07/09/23 13:17 Dose: 1 syr Spironolactone (Spironolactone 25 Mg Tablet) 12.5 mg PO DAILY [facility] Last Admin: 07/09/23 08:28 Dose: 12.5 mg Tiotropium [place] (Tiotropium [place] 18 Mcg Cap.W.Dev) 1 cap IH DAILY [facility] Last Admin: 07/09/23 08:24 Dose: 1 cap Trazodone HCl (Trazodone Hcl 50 Mg Tablet) 25 mg PO BEDTIME PRN PRN Reason: Insomnia Discontinued Medications Albuterol/Ipratropium (Ipratropium/Albuterol Vial.Neb) 3 ml NEB ONCE STA Stop: 07/08/23 16:29 Last Admin: 07/08/23 16:53 Dose: 3 ml Furosemide (Furosemide Inj 40 Mg/4 Ml Vial) 40 mg IVP ONCE STA Stop: 07/08/23 16:27 Last Admin: 07/08/23 16:30 Dose: 40 mg Sodium Chloride (Sodium Chloride) 500 mls @ 30 mls/hr IV .[id number] ONE Stop: 07/09/23 08:11 Last Infusion: 07/09/23 09:38 Dose: Infused Doxycycline Hyclate 100 mg/ (Sodium Chloride) 100 mls @ 50 mls/hr IV Q12HR [facility] Stop: 07/11/23 18:44 Last Admin: 07/09/23 09:22 Dose: 50 mls/hr Non-Formulary Medication (Dapagliflozin Propanediol [Farxiga]) 10 mg PO QAM [facility] Ondansetron HCl (Ondansetron Hcl/Pf 4 Mg/2 Ml Sdv) 4 mg IVP ONCE STA Stop: 07/08/23 15:33 Last Admin: 07/08/23 15:40 Dose: 4 mg Opioid Naive vs. Tolerant Does Patient Take Opioids?: No Is Patient Opioid Naive?: Yes What is Opioid Naive?: *Opioid Naive implies the patient is not already taking opioids or not chronically receiving opioids on a daily basis. *PRN dosing is not "usually" associated with tolerance. *Patients are at higher risk of over-sedation and aspiration. Is Patient Opioid Tolerant?: No What is Opioid Tolerant?: *Opioid Tolerance implies less than the expected response to an opioid. *Acquired tolerance is defined by the patient taking 60mg of oral morphine daily (or equianalgesic dose of another opioid) for 1 week or more. *Often associated with chronic pain. *May take more than usual dose to achieve desired pain control. Review of Systems Constitutional: Reports No symptoms Head: Reports Normocephalic and Atraumatic Eyes: Reports No symptoms Ears: Reports No symptoms Nose: Reports No symptoms Mouth: Reports No symptoms Throat: Reports No symptoms Cardiovascular: Reports No symptoms Respiratory: Reports Shortness of air Gastrointestinal: Reports No symptoms Genitourinary: Reports No Symptoms Musculoskeletal: Reports No symptoms Endocrine: Reports No symptoms Hematology: Reports No symptoms Immunology: Reports No symptoms Neurological: Reports Dizziness Physical examination Most Recent Vital Signs: Most Recent Vital Signs Temperature 97.6 F 07/09/23 10:00 Temperature Source Temporal Artery Scan 07/09/23 10:00 Temperature Source Oral 07/08/23 15:08 Pulse Rate 60 07/09/23 10:00 Respiratory Rate 16 07/09/23 10:00 Blood Pressure 94/45 L 07/09/23 10:00 Blood Pressure Mean 61 07/09/23 10:00 Blood Pressure Left Arm 111/64 07/08/23 18:03 Blood Pressure Location Left Arm 07/09/23 10:00 Blood Pressure Position Supine 07/09/23 10:00 O2 Sat by Pulse Oximetry 92 L 07/09/23 10:33 Oxygen Delivery Method Nasal Cannula 07/09/23 11:00 Oxygen Flow Rate 2 07/09/23 05:09 Height 5 ft 9 in 07/08/23 18:03 Weight 210 lb 07/08/23 18:25 Telemetry Type Remote Telemetry 07/09/23 07:00 Telemetry Monitoring Continues 07/09/23 07:00 Telemetry Heart Rate 62 07/09/23 07:00 Telemetry SPO2 91 L 07/09/23 07:00 EKG NE Interval 0.30 H 07/08/23 19:00 EKG QRS Interval 0.19 H 07/09/23 07:00 Telemetry Strip Reading A- fib with BBB 07/09/23 07:00 Appearance: Positive No Apparent Distress and Alert and Oriented x3 Skin: Positive Warm and Good Turgor HEENT: Positive Normocephalic and PERRLA Neck: Positive Supple and Midline Trachea Chest/Lungs: Positive Symmetrical With Equal Breath Sounds, Clear to Auscultation Bilaterally and Good Air Movement all 4 Lung Laws Heart: Positive RRR and Pulses Normal GI/: Positive Soft, Nontender, Bowel Sounds Normal and No Distention Musculoskeletal: Positive Not Examined Extremities: Positive Intact Peripheral Pulses, Stable Joints Without Laxity and Good ROM in All Joints Neurological: Positive Sensation Intact, Motor intact, Alert and Oriented Labs This Visit Labs This Visit: Labs This Visit 07/08/23 07/08/23 07/08/23 15:52 16:32 16:40 WBC 6.05 RBC 4.97 Hgb 14.8 Hct 45.9 MCV 92.4 MCH 29.8 MCHC 32.2 RDW Coeff of Martin 12.9 Plt Count 248 Immature Gran % (Auto) 0.3 Neut % (Auto) 50.8 Lymph % (Auto) 36.4 [place] % (Auto) 8.3 Eos % (Auto) 3.0 Baso % (Auto) 1.2 Neut # (Auto) 3.1 Lymph # (Auto) 2.2 [place] # (Auto) 0.5 Eos # (Auto) 0.2 Baso # (Auto) 0.1 Immature Gran # (Auto) 0.0 PT 11.0 INR 1.06 Puncture Site Rbrach Base Excess 11.5 H O2 Saturation 90.1 L ABG pH 7.43 ABG pCO2 54.0 H ABG pO2 57.0 L* ABG HCO3 35.8 H ABG Total CO2 37.5 H Hemoglobin 0.5 Oxyhemoglobin 88.5 L Carboxyhemoglobin 2.5 H Total Hemoglobin 15.5 FiO2 % 21.0 Sodium 136.0 Potassium 3.40 L Chloride 97.0 L Carbon Dioxide 30.1 H Anion Gap 12.30 BUN 15.8 Creatinine 1.38 H Estimated GFR (MDRD) 51.00 BUN/Creatinine Ratio 11.44 Glucose 110.2 H Calcium 9.07 Magnesium 1.88 Total Bilirubin 0.69 AST 28.4 ALT 16.7 Alkaline Phosphatase 63.5 Troponin I 0.018 NT-Pro-B Natriuret Pep 3170 H Total Protein 7.36 Albumin 4.06 Globulin 3.30 Albumin/Globulin Ratio 1.23 Urine Color Yellow Urine Clarity Clear Urine pH 7.0 Ur Specific Opp 1.015 Urine Protein Negative Urine Glucose (UA) 2+ H Urine Ketones Negative Urine Blood Negative Urine Nitrite Negative Urine Bilirubin Negative Urine Urobilinogen 0.2 Ur Leukocyte Esterase Negative Urine Opiates Screen Negative Ur Oxycodone Screen Positive H Urine Methadone Screen Negative Ur Barbiturates Screen Negative U Tricyclic Antidepress Negative Ur Phencyclidine Scrn Negative Ur Amphetamine Screen Negative U Methamphetamines Scrn Negative U Benzodiazepines Scrn Positive H Urine Cocaine Screen Negative U Cannabinoids Screen Negative Influ A Molecular Assay Influ B Molecular Assay RSV Antigen SARS CoV-2 RNA Rapid LISSY 07/08/23 16:41 WBC RBC Hgb Hct MCV MCH MCHC RDW Coeff of Martin Plt Count Immature Gran % (Auto) Neut % (Auto) Lymph % (Auto) [place] % (Auto) Eos % (Auto) Baso % (Auto) Neut # (Auto) Lymph # (Auto) [place] # (Auto) Eos # (Auto) Baso # (Auto) Immature Gran # (Auto) PT INR Puncture Site Base Excess O2 Saturation ABG pH ABG pCO2 ABG pO2 ABG HCO3 ABG Total CO2 Hemoglobin Oxyhemoglobin Carboxyhemoglobin Total Hemoglobin FiO2 % Sodium Potassium Chloride Carbon Dioxide Anion Gap BUN Creatinine Estimated GFR (MDRD) BUN/Creatinine Ratio Glucose Calcium Magnesium Total Bilirubin AST ALT Alkaline Phosphatase Troponin I NT-Pro-B Natriuret Pep Total Protein Albumin Globulin Albumin/Globulin Ratio Urine Color Urine Clarity Urine pH Ur Specific Opp Urine Protein Urine Glucose (UA) Urine Ketones Urine Blood Urine Nitrite Urine Bilirubin Urine Urobilinogen Ur Leukocyte Esterase Urine Opiates Screen Ur Oxycodone Screen Urine Methadone Screen Ur Barbiturates Screen U Tricyclic Antidepress Ur Phencyclidine Scrn Ur Amphetamine Screen U Methamphetamines Scrn U Benzodiazepines Scrn Urine Cocaine Screen U Cannabinoids Screen Influ A Molecular Assay Negative by naat Influ B Molecular Assay Negative by naat RSV Antigen Negative by naat SARS CoV-2 RNA Rapid LISSY Negative Imaging Imaging: EXAM: CHEST RADIOGRAPH TECHNIQUE: Single frontal chest radiograph. HISTORY: Shortness of breath. COMPARISON: 06/16/2023 FINDINGS: The lungs are clear. Cardiomegaly. Left-sided AICD. Previous ORIF of left posterior rib. IMPRESSION: 1. No acute disease. Review Statement Review Statement: I have independently reviewed and interpreted the labs/EKGs/imaging that were ordered by the ER provider. I have reviewed all outside records that are available currently in our EMR including imaging/notes/labs from previous visits. Plan Plan: 1. Acute on Chronic Hypoxic Respiratory Failure in setting of COPD Exacerbation - ER provider gave doxy. Covering with rocephin 1 G Q24H, steroids, nebs 2. Dizziness - likely due to low BP, checking orthostatic VS, holding diuretics, NS@75mL/hr 3. COPD - chronic, supposed to wear oxygen at home continuous per oxygen provider, will clarify, qualified with 3 step oximetry, has pulmonary appointment in the next couple weeks 4. CHF - not in exacerbation, clinically dry, holding diuretics, weight daily, I&O DVT Prophylaxis: Eliquis Time Spent: Greater than 80 minutes spent with patient, 50% of the time spent with this patient was devoted to counseling and coordination of care. [facility] Plannin minutes spent discussing advance care planning. Smoking Cessation: 3-10 minutes spent discussing smoking cessation. Disposition: Admit to: Med/Surg Observation Full Code Discussed Plan of Care with Dr. Celeste Benites. Medications Medication Orders: Medications Ordered Category Date Time Status 0.9 % Sodium Chloride [Saline Flush] Meds 07/08/23 21:00 Active 1 syr IVF Q8HR Alprazolam [Xanax] Meds 07/08/23 18:33 Active 1 mg PO TID PRN Amiodarone HCl [Cordarone] Meds 07/08/23 21:00 Active 200 mg PO BID Apixaban [Eliquis] Meds 07/08/23 21:00 Active 5 mg PO BID Budesonide/Formoterol Fumarate [Symbicort 160-4.5 Mcg Meds 07/08/23 21:00 Active Inhaler] 2 puff IH BID Bumetanide [Bumex] Meds 07/08/23 19:00 Active 1 mg PO .COMPLEX Bumetanide [Bumex] Meds 07/09/23 09:00 Active 2 mg PO DAILY Ceftriaxone/D5w 1 gm Premix [Rocephin 1 gm/50 ml D5w] Meds 07/09/23 11:00 Active 1 gm in 50 ml IV DAILY Clopidogrel Bisulfate [Plavix] Meds 07/09/23 09:00 Active 75 mg PO DAILY Empaglifozin [Jardiance] Meds 07/09/23 09:00 Active 25 mg PO DAILY Fluoxetine HCl [Prozac] Meds 07/09/23 09:00 Active 20 mg PO QAM Ipratropium/Albuterol Neb [Duoneb] Meds 07/08/23 18:39 Active 3 ml NEB RTQ6H PRN Levothyroxine Sodium [Synthroid] Meds 07/09/23 09:00 Active 50 mcg PO DAILY Losartan Potassium [Cozaar] Meds 07/09/23 09:00 Active 25 mg PO DAILY Meclizine HCl [Antivert] Meds 07/08/23 23:12 Active 25 mg PO Q6H PRN Methylprednisolone Sod Succ/Pf [Solu-Medrol 40 mg] Meds 07/08/23 18:45 Active 40 mg IVP Q8HR Metoprolol Succinate [Toprol Xl] Meds 07/09/23 09:00 Active 12.5 mg PO DAILY Mirtazapine [Remeron] Meds 07/09/23 09:00 Active 30 mg PO DAILY Oxycodone HCl [Oxycodone] Meds 07/08/23 18:33 Active 30 mg PO Q6H PRN Pantoprazole Sodium [Protonix] Meds 07/09/23 09:00 Active 40 mg PO DAILY Potassium Chloride [Micro-K Cap] Meds 07/09/23 09:00 Active 10 meq PO DAILY Spironolactone [Aldactone] Meds 07/09/23 09:00 Active 12.5 mg PO DAILY Tiotropium [place] [Spiriva] Meds 07/09/23 09:00 Active 1 cap IH DAILY Trazodone HCl [Desyrel] Meds 07/08/23 18:33 Active 25 mg PO BEDTIME PRN
[2023-07-09] MEDS ORDERED: ANTIVERT PO PRN (13:29)
[2023-07-09] MEDS: SODIUM CHLORIDE 1,000 ML IV SCH (14:51)
[2023-07-09] MEDS: DESYREL PO PRN (21:08)
[2023-07-10 05:15] LABS: BASOPHILS % (AUTO) 0.1 % (0.0-3.0); HEMATOCRIT 41.4 % (42.0-52.0); HEMOGLOBIN 13.3 g/dl (14.0-18.0); IMMATURE GRANULOCYTE # (AUTO) 0.1 (0.0-1.0); IMMATURE GRANULOCYTE % (AUTO) 0.5 % (0.0-5.0); LYMPHOCYTES # (AUTO) 0.5 K/uL (0.60-3.4); LYMPHOCYTES % (AUTO) 4.1 (10.0-50.0); MEAN CORPUSCULAR HEMOGLOBIN 29.8 pg (27.0-31.0); MEAN CORPUSCULAR HGB CONC 32.1 (31.8-35.4); MEAN CORPUSCULAR VOLUME 92.8 fl (80.0-94.0); MONOCYTES # (AUTO) 0.4 K/uL (0.4-2.0); MONOCYTES % (AUTO) 3.1 (0-10); NEUTROPHILS # (AUTO) 12.3 K/ul (2.0-6.9); NEUTROPHILS % (AUTO) 92.2 % (42.2-75.2); PLATELET COUNT 216 10^3/uL (140-440); RED BLOOD COUNT 4.46 10^6/ul (4.70-6.10); WHITE BLOOD COUNT 13.28 K/ul (4.2-10.2)
[2023-07-10 05:20] VITALS: TEMP 97.2
[2023-07-10 05:31] VITALS: BP 93/61
[2023-07-10 05:33] LABS: ALANINE AMINOTRANSFERASE 15.9 U/L (0-50); ALBUMIN 3.37 g/dL (3.5-5.0); ALKALINE PHOSPHATASE 53.4 U/L (56-119); ASPARTATE AMINO TRANSFERASE 20.6 U/L (17-59); BILIRUBIN,TOTAL 0.32 mg/dL (0.2-1.3); BLOOD UREA NITROGEN 20.8 mg/dL (9-20); CALCIUM 8.46 mg/dL (8.4-10.2); CARBON DIOXIDE 26.4 mmol/L (22-30.0); CHLORIDE 101.4 mmol/L (98-107); CREATININE 1.29 mg/dL (0.60-1.10); GLUCOSE 192.9 mg/dL (74-106); POTASSIUM 3.75 mmol/L (3.5-5.1); SODIUM 134.8 mmol/L (134.5-145); TOTAL PROTEIN 6.31 g/dL (6.3-8.2)
--- NOTE | 2023-07-10 08:14 | DCSUM ---
Admission Date Admission Date: 07/08/23 Discharge Date Discharge Date: 07/10/23 Admission Diagnosis Admission Diagnosis: 1. Acute on Chronic Hypoxic Respiratory Failure in setting of COPD Exacerbation 2. Dizziness 3. COPD 4. CHF Discharge Diagnosis Discharge Diagnosis: 1. Acute on Chronic Hypoxic Respiratory Failure in setting of COPD Exacerbation - Resolved 2. Dizziness - Resolved 3. COPD - chronic, stable 4. CHF - chronic, stable Hospital Provider Hospital Provider: MARIAMA EDGAR, [facility] [place] Primary Care Physician Primary Care Physician: MANUELA WATSON Summary of History and Physical Summary of History and Physical: 68 yo male presented to the ER with complaints of shortness of breath and dizziness. Has pmh of COPD with prn oxygen requirement, CAD, and CHF. Had recently been admitted to [facility] with CHF exacerbation and was d/c on 06/20. States he had not been feeling well for the last 2 weeks. Saw his PCP and was prescribed 2 Z-packs with a steroid and did not have any improvement. Patient reports home inhaler and nebulizer use. Has not been wearing his oxygen much. No acute findings in ER other than O2 sat dropping into the 80s when on RA. Patient denies any fever, recent weight gain or edema, chest pain, or other symptoms. 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 Oxygen company reported patient is supposed to wear 2L of oxygen at all times and has a portable tank that he is supposed to be using. BP has been consistently soft since admission. Does not appear to be fluid overloaded at this time. Hospital Course Subjective: Patient was treated for COPD exacerbation with rocephin 1G Q24H, steroids, and nebs. Patient was d/c home with 5 days of Keflex to complete. Did not continue steroids due to recent course. Has nebs and inhalers at home. Has continuous oxygen with portable oxygen at home. Follow-up with Pulmonary as scheduled. Dizziness noted prior to admission. BP was found to be lower yesterday with diastolic in 40s. Orthostatic vitals completed and normal. Received NS@75mL/hr and held diuretics. Dizziness improved following this treatment and improvement of hypoxia. D/c with meclizine per patient request and determined need for 2L of continuous oxygen. No changes made to home medications. Appearance: Pleasant, No Apparent Distress and Alert HEENT: MMM, Supple and No JVD CVS: No Murmur, No Rubs and No Gallop Abdomen: Soft, Non-Tender and No Distention Respiratory: No Dyspnea Extremities: No Edema Vital Signs: Most Recent Vital Signs Temperature 97.2 F L 07/10/23 05:18 Temperature Source Temporal Artery Scan 07/10/23 05:18 Temperature Source Oral 07/08/23 15:08 Pulse Rate 69 07/10/23 05:31 Respiratory Rate 17 07/10/23 05:18 Blood Pressure 93/61 07/10/23 05:31 Blood Pressure Mean 71 07/10/23 05:18 Blood Pressure Left Arm 111/64 07/08/23 18:03 Blood Pressure Location Left Arm 07/09/23 20:33 Blood Pressure Position Standing 07/10/23 05:31 O2 Sat by Pulse Oximetry 97 07/10/23 05:18 Oxygen Delivery Method Nasal Cannula 07/10/23 08:00 Oxygen Flow Rate 2 07/09/23 20:29 Fraction of Inspired Oxygen (FIO2) 2 07/10/23 05:18 Height 5 ft 9 in 07/08/23 18:03 Weight 210 lb 07/08/23 18:25 Telemetry Type Remote Telemetry 07/10/23 07:00 Telemetry Monitoring Continues 07/10/23 07:00 Telemetry Heart Rate 62 07/10/23 07:00 Telemetry SPO2 95 07/10/23 07:00 EKG MI Interval 0.3 H 07/10/23 07:00 EKG QRS Interval 0.13 H 07/10/23 07:00 Telemetry Strip Reading Paced with 1 avb and bbb 07/10/23 07:00 Lab Results Last 24 Hours: 07/10/23 05:02 WBC 13.28 H D RBC 4.46 L Hgb 13.3 L Hct 41.4 L MCV 92.8 MCH 29.8 MCHC 32.1 RDW Coeff of Martin 13.0 Plt Count 216 Immature Gran % (Auto) 0.5 Neut % (Auto) 92.2 H Lymph % (Auto) 4.1 L [place] % (Auto) 3.1 Eos % (Auto) 0.0 Baso % (Auto) 0.1 Neut # (Auto) 12.3 H Lymph # (Auto) 0.5 L [place] # (Auto) 0.4 Eos # (Auto) 0.0 Baso # (Auto) 0.0 Immature Gran # (Auto) 0.1 Sodium 134.8 Potassium 3.75 Chloride 101.4 Carbon Dioxide 26.4 Anion Gap 10.75 BUN 20.8 H Creatinine 1.29 H Estimated GFR (MDRD) 56.00 BUN/Creatinine Ratio 16.12 Glucose 192.9 H Calcium 8.46 Total Bilirubin 0.32 AST 20.6 ALT 15.9 Alkaline Phosphatase 53.4 L Total Protein 6.31 Albumin 3.37 L Globulin 2.94 Albumin/Globulin Ratio 1.14 Discharge Instructions Discharge Planning: Discharge Planning > 40 minutes If patient is discharged with left ventricular systolic dysfunction: NA Discharged with a beta sascha? [] If no, why not? [] Discharged with an stanton/arb? [] If no, why not? [] Diagnosis: COPD Exacerbation * Be sure to wear oxygen at home; 2L Nasal Cannula Diet: Regular Activity: As tolerated Follow-up with PCP next week Medications: Keflex take twice a day for 5 days (start today) Meclizine may take every 6 hours as needed for dizziness No other medication changes. Resume all home medications. Discharge Medications: Medications at Discharge (Home Meds & RX) alprazolam 1 mg tablet (Xanax) 1 mg PO TID PRN Panic attacks 12/06/15 albuterol sulfate 90 mcg/actuation aerosol inhaler 2 puff inhalation Q6HR PRN Wheezing 01/27/22 apixaban 5 mg tablet 5 mg PO BID 01/27/22 budesonide-formoterol HFA 160 mcg-4.5 mcg/actuation aerosol inhaler 2 puff inhalation BID 01/27/22 levothyroxine 50 mcg tablet 50 mcg PO DAILY 01/27/22 nitroglycerin 0.4 mg sublingual tablet (Nitrostat) 0.4 mg sublingual PRN PRN Chest Pain 01/27/22 pantoprazole 40 mg tablet,delayed release 40 mg PO DAILY 01/27/22 spironolactone 25 mg tablet 12.5 mg PO DAILY 01/27/22 clopidogrel 75 mg tablet (Plavix) 75 mg PO DAILY 10/27/22 bumetanide 2 mg tablet 2 mg PO DAILY 12/25/22 amiodarone 200 mg tablet 200 mg PO BID 07/08/23 bumetanide 1 mg tablet 1 mg PO .COMPLEX 07/08/23 dapagliflozin propanediol 10 mg tablet (Farxiga) 10 mg PO QAM 07/08/23 fluoxetine 20 mg capsule 20 mg PO QAM 07/08/23 losartan 25 mg tablet 25 mg PO DAILY 07/08/23 melatonin 3 mg capsule 6 mg PO BEDTIME 07/08/23 metoprolol succinate 25 mg tablet,extended release 24 hr 12.5 mg PO DAILY 07/08/23 mirtazapine 30 mg tablet 30 mg PO DAILY 07/08/23 oxycodone 30 mg tablet 30 mg PO Q6H PRN pain 07/08/23 polyethylene glycol 3350 17 gram/dose oral powder (Miralax) 17 g PO DAILY 07/08/23 potassium chloride 10 mEq tablet,extended release (Klor-Con) 10 meq PO .COMPLEX 07/08/23 potassium chloride 10 mEq tablet,extended release (Klor-Con) 10 meq PO DAILY 07/08/23 promethazine 25 mg tablet 25 mg PO DAILY PRN nausea and vomiting 07/08/23 sennosides 8.6 mg-docusate sodium 50 mg tablet (Docuzen) 2 tab-cap PO BID PRN constipation 07/08/23 tiotropium bromide 18 mcg capsule with inhalation device (Spiriva with HandiHaler) 1 cap inhalation DAILY 07/08/23 trazodone 50 mg tablet 25 mg PO BEDTIME PRN insomnia 07/08/23 Discharge Plan Discharge Discharge Orders: Discharge Patient (ONCE); Ordered 07/10/23 Ordered By: JERMAINE FORD Activity Restrictions/Additional Instructions: Discharge home today. Diagnosis: COPD Exacerbation * Be sure to wear oxygen at home; 2L Nasal Cannula Diet: Regular Activity: As tolerated Follow-up with PCP next week Medications: Keflex take twice a day for 5 days (start today) Meclizine may take every 6 hours as needed for dizziness No other medication changes. Resume all home medications. Instructions: COPD (Chronic Obstructive Pulmonary Disease) (GEN) Patient Disposition: HOME SELF-CARE Prescriptions: New meclizine 25 mg Tablet 25 mg PO Q6H PRN (Reason: dizziness) Qty: 30 0RF cephalexin 500 mg capsule 500 mg PO BID Qty: 10 0RF Continued alprazolam [Xanax] 1 MG tablet 1 mg PO TID PRN (Reason: Panic attacks) Hold Instructions: new medication Rx Instructions: take 1 to 2 tabs bid prn amiodarone 200 mg tablet 200 mg PO BID bumetanide 1 mg tablet 1 mg PO .COMPLEX Rx Instructions: 1 mg orally in the afternoons on Mondays, Wednesdays, and Fridays dapagliflozin propanediol [Farxiga] 10 mg tablet 10 mg PO QAM fluoxetine 20 mg capsule 20 mg PO QAM losartan 25 mg tablet 25 mg PO DAILY melatonin 3 mg capsule 6 mg PO BEDTIME metoprolol succinate 25 mg tablet extended release 24 hr 12.5 mg PO DAILY polyethylene glycol 3350 [Miralax] 17 gram/dose powder 17 g PO DAILY oxycodone 30 mg tablet 30 mg PO Q6H PRN (Reason: pain) potassium chloride [Klor-Con 10] 10 mEq tablet extended release 10 meq PO DAILY potassium chloride [Klor-Con 10] 10 mEq tablet extended release 10 meq PO .COMPLEX Rx Instructions: 10 mEq orally on Mondays, Wednesdays, and Fridays mirtazapine 30 mg tablet 30 mg PO DAILY promethazine 25 mg tablet 25 mg PO DAILY PRN (Reason: nausea and vomiting) sennosides-docusate sodium [Docuzen] 8.6-50 mg tablet 2 tab-cap PO BID PRN (Reason: constipation) tiotropium bromide [Spiriva with HandiHaler] 18 mcg capsule, w/inhalation device 1 cap inhalation DAILY Rx Instructions: puncture 1 cap using device; one dose = 2 inhalations trazodone 50 mg tablet 25 mg PO BEDTIME PRN (Reason: insomnia) albuterol sulfate 90 mcg/actuation Hfa Aerosol Inhaler 2 puff INHALATION Q6HR PRN (Reason: Wheezing) apixaban 5 mg Tablet 5 mg PO BID spironolactone 25 mg Tablet 12.5 mg PO DAILY levothyroxine 50 mcg tablet 50 mcg PO DAILY pantoprazole 40 mg Tablet,Delayed Release (Dr/Ec) 40 mg PO DAILY nitroglycerin [Nitrostat] 0.4 mg Tablet, Sublingual 0.4 mg sublingual PRN PRN (Reason: Chest Pain) budesonide-formoterol 160-4.5 mcg/actuation Hfa Aerosol Inhaler 2 puff INHALATION BID clopidogrel [Plavix] 75 mg tablet 75 mg PO DAILY bumetanide 2 mg tablet 2 mg PO DAILY Did you review [place] [employer] for ALL controlled substances?: No Discussed opioids are addictive and Narcan is available by prescription or from pharmacy.: No Condition: Stable Referrals: MANUELA WATSON [Primary Care Provider] - 07/16/23 11:00 am
[2023-07-10 09:09] VITALS: PULSE 70; RESP 18
== END 2023-07-10 08:50 | disposition home or self-care (01) ==
LOC: ED 15:05 → MEDSURG B 15:05
PROVIDERS: ADMIT Hospitalist; ATTEND Nurse Practitioner Family
DX: R42 Dizziness and giddiness; I25.810 Atherosclerosis of coronary artery bypass graft(s) without angina pectoris; I10 Essential (primary) hypertension; Z20.822 Contact with and (suspected) exposure to COVID-19; Z79.01 Long term (current) use of anticoagulants; F17.210 Nicotine dependence, cigarettes, uncomplicated; J44.1 Chronic obstructive pulmonary disease with (acute) exacerbation; Z79.899 Other long term (current) drug therapy; J96.21 Acute and chronic respiratory failure with hypoxia; Z95.0 Presence of cardiac pacemaker; I50.9 Heart failure, unspecified; Z51.81 Encounter for therapeutic drug level monitoring; I48.91 Unspecified atrial fibrillation